=== PATIENT | female | born 1980 | race Caucasian/White ===

== ENCOUNTER 2020-10-06 00:10 | Emergency (ER) | payer OTHER, SELFPAY ==
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
[2020-10-06 01:56] VITALS: BP 116/71; PULSE 101; RESP 18; TEMP 36.8; O2SAT 97; BMI 19.8
[2020-10-06 04:00] VITALS: BP 128/72; PULSE 92; RESP 16; TEMP 36.9; O2SAT 99
--- NOTE | 2020-10-06 04:49 | ECG_ITS ---
Test Reason : CP Blood Pressure : / mmHG Vent. Rate : 079 BPM Atrial Rate : 079 BPM P-R Int : 124 ms QRS Dur : 082 ms QT Int : 378 ms P-R-T Axes : 062 040 035 degrees QTc Int : 433 ms Normal sinus rhythm with sinus arrhythmia Normal ECG No previous ECGs available Referred By: Vickie Hope Electronically Signed By:SYLVAIN SIMPSON MD
[2020-10-06 05:14] LABS: Basophils Percent Auto 0.3 % (0-2); Eosinophils Absolute Auto 0.2 X10*3/uL (0.0-0.4); Eosinophils Percent Auto 1.7 % (0-4); Hematocrit 38.5 % (37-47); Imm Gran Abs Auto 0.03 X10*3/uL (0.00-0.03); Imm Gran Pct Auto 0.3 % (0.0-0.4); Lymphocytes Absolute Auto 1.7 X10*3/uL (1.2-4.9); Lymphocytes Percent Auto 15.2 % (20-40); MANUAL DIFF FLAG NO; Mean Corpuscular HGB Conc 33.8 g/dl (31.0-35.0); Mean Corpuscular Hemoglobin 29.7 pg (27.0-33.0); Mean Corpuscular Volume 88.1 fL (80-98); Mean Platelet Volume 9.9 fL (9.4-12.3); Monocytes Absolute Auto 0.8 X10*3/uL (0.1-1.2); Monocytes Percent Auto 7.3 % (2-11); Neutrophils Absolute Auto 8.6 X10*3/uL (2.0-8.3); Neutrophils Percent Auto 75.2 % (45-73); Platelet Count 279 X10*3/uL (160-400); Red Blood Count 4.37 X10*6/uL (4.20-5.50); Red Cell Distribution Width 12.8 % (11.0-16.0); White Blood Count 11.4 X10*3/uL (4.8-10.8)
[2020-10-06 05:16] LABS: Appearance Urine HAZY; Color Urine AMBER; Glucose Urine UA 250 MG/DL (NEG); Leukocyte Esterase Urine NEG (NEG); Nitrite Urine NEG (NEG); PH 5.5 (5.0-8.0); Specific Gravity - Urine >= 1.030 (1.005-1.025); Urine Blood NEG (NEG); Urine Ketones 5 MG/DL (NEG); Urine Protein 1+ MG/DL (NEG-TRACE)
[2020-10-06 05:22] LABS: UACC CULT YES
[2020-10-06 05:23] LABS: Bacteria Urine 2+ /LPF; Calcium Oxalate Crystals Urine 3+ /LPF; Mucus Urine 2+ /LPF; RBC Urine 0 /HPF (0); Squamous Epithelial Cell Urine 2+ /LPF
--- NOTE | 2020-10-06 05:27 | PC.NURSE ---
EKG obtained by this RN.
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
[2020-10-06 05:37] LABS: Alanine Aminotransferase 17 U/L (0-31); Alkaline Phosphatase 101 U/L (39-117); Anion Gap 16 (12-20); Aspartate Amino Transferase 14 U/L (5-31); Bilirubin Total 0.4 mg/dL (0.0-1.0); Blood Urea Nitrogen 14 mg/dL (9-16); Calcium 8.9 mg/dL (8.4-10.2); Carbon Dioxide 27 mmol/L (22-29); Chloride 97 mmol/L (96-108); Creatinine Clr Calc Pharmacy 74.7; Estimated Glomerular Filt Rate > 60; Glucose Random 343 mg/dL (60-115); Potassium 3.8 mmol/L (3.3-5.1); Sodium 136 mmol/L (135-145); Total Protein 7.1 g/dL (6.5-8.0)
[2020-10-06] MEDS: cephALEXin 500 MG CAPSULE PO (06:30)
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
== END 2020-10-06 06:59 | disposition home or self-care (01) ==
PROVIDERS: Emergency Provider Student in an Organized Health Care Education/Training Program; PCP Nurse Practitioner Adult Health
DX: N39.0 Urinary tract infection, site not specified (principal); F17.200 Nicotine dependence, unspecified, uncomplicated; Z71.6 Tobacco abuse counseling; Z79.899 Other long term (current) drug therapy
CPT/HCPCS: 36415; 71045; 80053; 81001; 85025; 87086; 93005; 99284

== ENCOUNTER 2021-01-10 16:06 | Inpatient (IN) | payer OTHER, SELFPAY ==
--- NOTE | ~2021-01-10 | US_ITS ---
EXAMINATION: US VENOUS ULTRASOUND WITH DOPPLER LOWER EXTREMITY, LEFT CLINICAL INFORMATION: Swelling. COMPARISON: None TECHNIQUE: Ultrasound of the deep veins is performed from the hip to the calf with compression sonography and color and pulse Doppler assessment. Spectral analysis with color-flow imaging is performed. FINDINGS: There is normal venous compression and respiratory variation and augmented flow. The visualized common femoral vein, superficial femoral vein, profunda femoral vein, popliteal vein, and the trifurcation region shows no evidence of deep venous thrombosis. There is no significant popliteal fossa cyst. If the patient's symptoms persist, followup ultrasound in 5 days 7 days might be of value to exclude proximal propagation from a non-visualized calf vein. US/US venous duplex LE LT IMPRESSION: No DVT demonstrated in the left lower extremity.
--- NOTE | ~2021-01-10 | XR_ITS ---
EXAMINATION: ANKLE, LEFT COMMON LEFT CLINICAL INFORMATION: Foot swelling. COMPARISON: None TECHNIQUE: 2 views of the left ankle. 3 views of the left foot. FINDINGS: No fracture or dislocation. The ankle mortise is intact. No joint effusion. Soft tissues are unremarkable. XR/XR foot LT 2V IMPRESSION: No fracture or dislocation.
--- NOTE | ~2021-01-10 | XR_ITS ---
EXAMINATION: ANKLE, LEFT COMMON LEFT CLINICAL INFORMATION: Foot swelling. COMPARISON: None TECHNIQUE: 2 views of the left ankle. 3 views of the left foot. FINDINGS: No fracture or dislocation. The ankle mortise is intact. No joint effusion. Soft tissues are unremarkable. XR/XR ankle LT 2V IMPRESSION: No fracture or dislocation.
--- NOTE | ~2021-01-10 | MR_ITS ---
EXAMINATION: MRI FOOT, LEFT WITHOUT CONTRAST CLINICAL INFORMATION: Rule out osteomyelitis COMPARISON: CT from 01/11/2021 TECHNIQUE: Multisequence multidimensional MR acquisition of the left foot performed without IV contrast. Study is limited with premature termination due to patient condition. FINDINGS: There is no bone marrow signal abnormality identified. No abnormal increased T2 signal. No abnormal decreased T1 signal within the osseous structures. No joint effusion. There is mild edema in the medial soft tissues, adjacent to the first metatarsophalangeal joint superficially. No definite fluid collection identified. No significant soft tissue defect. The visualized flexor and extensor tendons of the foot are grossly unremarkable. The deep musculature of the foot appears unremarkable. MR/MR foot LT wo con IMPRESSION: No evidence of osteomyelitis. Superficial edema at the medial aspect of the foot.
--- NOTE | ~2021-01-10 | CT_ITS ---
EXAMINATION: Contrast CT SCAN OF THE LEFT FOOT CLINICAL INFORMATION: Diabetic foot infection, evaluate for deeper infection. COMPARISON: X-rays of the left foot 01/10/2021. TECHNIQUE: CT scan of the left foot was performed with contrast with reconstruction imaging performed at the acquisition workstation. Contrast dose 85 mL of Omnipaque 350. DLP: 139 mGy-cm. FINDINGS: Subcutaneous soft tissues: There is generalized fluid density noted within the subcutaneous soft tissues, most prominent at the dorsal aspect of the foot, compatible edema, cellulitis or a combination of these. There is less prominent scattered areas of similar density noted throughout the circumferential subcutaneous soft tissues. Additionally, there is a more focal area of heterogeneous enhancement with a somewhat peripheral area of enhancement along the plantar aspect of the foot just distal to level of the 1st metatarsophalangeal joint. This measures approximately 1.6 x 2 x 2 cm. This could reflect an evolving abscess versus localized cellulitis. No additional focal abnormalities noted. Bone and joints are unremarkable. CT/CT foot LT w con IMPRESSION: Bone and joints are intact. Probable generalized edema , cellulitis or a combination of these most prominent along the dorsal aspect of the foot. Question concomitant focal evolving abscess or prominent localized cellulitis along the plantar aspect of the foot, just distal to the level of the 1st metatarsophalangeal joint.
[2021-01-10 16:15] VITALS: BP 124/78; PULSE 91; O2SAT 97
[2021-01-10 18:49] VITALS: BP 122/80; PULSE 88; RESP 18; TEMP 36.9; O2SAT 100; BMI 22.6
[2021-01-10] MEDS: Acetaminophen 325 MG TABLET 650 MG PO (18:55)
[2021-01-10 19:41] LABS: Glucose, Whole Blood 180 mg/dL (60-115)
[2021-01-10 19:56] LABS: Mean Corpuscular HGB Conc 32.5 g/dl (31.0-35.0); Mean Corpuscular Hemoglobin 27.5 pg (27.0-33.0); Mean Corpuscular Volume 84.7 fL (80-98); Mean Platelet Volume 9.7 fL (9.4-12.3); Platelet Count 283 X10*3/uL (160-400); Red Blood Count 4.72 X10*6/uL (4.20-5.50); Red Cell Distribution Width 14.3 % (11.0-16.0); White Blood Count 10.2 X10*3/uL (4.8-10.8)
--- NOTE | 2021-01-10 20:12 | ED_ITS ---
HPI - Extremity Injury (Lower) General Chief Complaint: Extremity Injury, Lower Stated Complaint: anxiety Time Seen by Provider: 01/10/21 19:49 Source: patient Mode of arrival: ambulatory Limitations: no limitations History of Present Illness HPI Narrative: Patient presents to the ED for left foot swelling and redness for 4 days. Patient has a wound on plantar aspect of foot has worsened and the foot is red and swollen. Patient admits to IV drug use. Patient denies any fever or chills. Related Data Home Medications Medication Instructions Recorded Confirmed insulin aspart U-100 100 unit/mL See Rx Instructions .ROUTE .COMPLEX 01/10/21 01/10/21 subcutaneous solution (Novolog U-100 Insulin aspart) insulin pump controller 01/10/21 01/10/21 Allergies Allergy/AdvReac Type Severity Reaction Status Date / Time ibuprofen Allergy Anaphylaxis Verified 01/10/21 18:54 Review of Systems Constitutional: Constitutional: Reports as per HPI and Reports no additional constitutional complaints Eyes: Eyes: Reports as per HPI and Reports no additional eye complaints ENT: Reports system reviewed and no additional complaints, except as documented and Reports as per HPI Cardiovascular: Cardiovascular: Reports as per HPI and Reports no additional cardiovascular complaints Respiratory: Respiratory: Reports as per HPI and Reports no additional respiratory complaints Gastrointestinal: Gastrointestinal: Reports as per HPI and Reports no additional gastrointestinal complaints Genitourinary: Genitourinary: Reports no additional female genitourinary complaints and Reports as per HPI Musculoskeletal: Musculoskeletal: Reports no additional musculoskeletal complaints and Reports as per HPI Comments: Left foot redness swelling Neurologic: Reports system reviewed and no additional complaints, except as documented and Reports as per HPI Psychiatric: Psychiatric: Reports no additional psychiatric complaints and Reports as per HPI Endocrine: Endocrine: Reports no additional endocrine complaints and Reports as per HPI [facility] Past Medical History Medical History (Updated 01/10/21 @ 23:05 by THADDEUS Light) Type 1 diabetes Surgical History (Updated 01/10/21 @ 18:52 by Joesph Garland) H/O: hysterectomy Social History Social History Alcohol intake: never Substance Use Type: Crack/Cocaine, Heroin and IV Drugs Advance Directives: No Advance Directives Information Provided: Yes Patient : No service: No Current occupational status: disabled Physical Exam Vital Signs: Vital Signs: Last Vital Signs Temp 98.5 F 01/10/21 18:49 Pulse 90 01/10/21 22:01 Resp 12 01/10/21 22:01 BP 107/61 01/10/21 22:01 Pulse Ox 97 01/10/21 22:01 Body Mass Index 22.6 Const: General: cooperative, healthy appearing, comfortable, no acute distress, well developed, alert and awake HENMT: Head: Yes normal to inspection, Yes No palpable skull fracture present, Yes normocephalic, Yes atraumatic and No abrasion Eyes: General: appearance normal, both eyes and all related structures Neck: Neck: Yes normal visual inspection, Yes full ROM, Yes no lymphadenopathy, Yes no meningeal signs, Yes trachea midline, Yes supple and No tender Chest: Chest palpation & inspection: normal inspection of the chest and normal palpation of entire chest wall Resp: Effort & Inspection: normal respiratory effort and able to speak in complete sentences Auscultation: clear to auscultation bilaterally Cardio: Jugular venous distension: no JVD Heart sounds: S1 normal heart sound present and S2 normal heart sound present GI: Inspection: Yes normal to inspection and No abdominal wall ecchymosis Palpation (GI): Soft to palpation, not firm, nontender, no guarding and not rigid : General: No CVA tenderness and Yes no CVA tenderness Back/Spine/Pelvis: Back: no CVA tenderness, No CVA tenderness and No back tenderness Skin: Other: Left foot cellulitis Neuro: General: no meningeal signs Extrem: Other: Ankle/foot/toe images: 1. Redness, swelling, warmth. 2. Dry wound/blister Psych: Other: Course Course Course Narrative: Left lower extremity is seen infectious. Will do labs, ESR, CRP, foot x-ray and IV antibiotic vancomycin. Patient has anaphylaxis to penicillin and NSAIDs. Reevaluation(s) Reevaluation #1: Patient started vancomycin. ESR CRP elevated. Patient to be admitted for diabetic foot cellulitis. Time: 22:56 MDM - Extremity Injury (Lower) MDM Narrative Medical decision making narrative: Diabetic foot. Cellulitis Lab Data Result diagrams: 01/10/21 19:50 01/10/21 19:50 Labs: Lab Results 01/10/21 01/10/21 01/10/21 Range/Units 19:38 19:50 19:50 WBC 10.2 (4.8-10.8) X10*3/uL RBC 4.72 (4.20-5.50) X10*6/uL Hgb 13.0 (12.0-16.0) g/dl Hct 40.0 (37-47) % MCV 84.7 (80-98) fL MCH 27.5 (27.0-33.0) pg MCHC 32.5 (31.0-35.0) g/dl RDW 14.3 (11.0-16.0) % Plt Count 283 (160-400) X10*3/uL MPV 9.7 (9.4-12.3) fL Absolute Nucleated RBC 0.000 (0.0-0.012) X10*3/uL Nucleated RBC % (auto) 0.0 (0.0-0.2) /100WBC ESR (0-20) MM/HR Sodium 135 (135-145) mmol/L Potassium 4.1 (3.3-5.1) mmol/L Chloride 96 (96-108) mmol/L Carbon Dioxide 29 (22-29) mmol/L Anion Gap 14 (12-20) BUN 8 L (9-16) mg/dL Creatinine 0.70 (0.5-1.4) mg/dL Estim Creat Clear Calc 81.3 Estimated GFR > 60 POC Glucose 180 H (60-115) mg/dL Random Glucose 225 H (60-115) mg/dL Lactic Acid (0.5-2.0) mmol/L Calcium 8.8 (8.4-10.2) mg/dL C-Reactive Protein 5.45 H (< or = 0.50) mg/dL COVID-19 (KIRSTEN) (Negative) COVID-19 Clin Com 01/10/21 01/10/21 01/10/21 Range/Units 19:50 19:50 20:02 WBC (4.8-10.8) X10*3/uL RBC (4.20-5.50) X10*6/uL Hgb (12.0-16.0) g/dl Hct (37-47) % MCV (80-98) fL MCH (27.0-33.0) pg MCHC (31.0-35.0) g/dl RDW (11.0-16.0) % Plt Count (160-400) X10*3/uL MPV (9.4-12.3) fL Absolute Nucleated RBC (0.0-0.012) X10*3/uL Nucleated RBC % (auto) (0.0-0.2) /100WBC ESR 28 H (0-20) MM/HR Sodium (135-145) mmol/L Potassium (3.3-5.1) mmol/L Chloride (96-108) mmol/L Carbon Dioxide (22-29) mmol/L Anion Gap (12-20) BUN (9-16) mg/dL Creatinine (0.5-1.4) mg/dL Estim Creat Clear Calc Estimated GFR POC Glucose (60-115) mg/dL Random Glucose (60-115) mg/dL Lactic Acid 1.1 (0.5-2.0) mmol/L Calcium (8.4-10.2) mg/dL C-Reactive Protein (< or = 0.50) mg/dL COVID-19 (KIRSTEN) Negative (Negative) COVID-19 Clin Com See Note 01/10/21 Range/Units 22:00 WBC (4.8-10.8) X10*3/uL RBC (4.20-5.50) X10*6/uL Hgb (12.0-16.0) g/dl Hct (37-47) % MCV (80-98) fL MCH (27.0-33.0) pg MCHC (31.0-35.0) g/dl RDW (11.0-16.0) % Plt Count (160-400) X10*3/uL MPV (9.4-12.3) fL Absolute Nucleated RBC (0.0-0.012) X10*3/uL Nucleated RBC % (auto) (0.0-0.2) /100WBC ESR (0-20) MM/HR Sodium (135-145) mmol/L Potassium (3.3-5.1) mmol/L Chloride (96-108) mmol/L Carbon Dioxide (22-29) mmol/L Anion Gap (12-20) BUN (9-16) mg/dL Creatinine (0.5-1.4) mg/dL Estim Creat Clear Calc Estimated GFR POC Glucose 219 H (60-115) mg/dL Random Glucose (60-115) mg/dL Lactic Acid (0.5-2.0) mmol/L Calcium (8.4-10.2) mg/dL C-Reactive Protein (< or = 0.50) mg/dL COVID-19 (KIRSTEN) (Negative) COVID-19 Clin Com Discharge Plan Discharge Clinical Impression: Diabetic foot, Cellulitis Patient Disposition: Admitted As Inpatient
[2021-01-10 20:17] LABS: Lactic Acid 1.1 mmol/L (0.5-2.0)
[2021-01-10 20:21] LABS: Anion Gap 14 (12-20); Blood Urea Nitrogen 8 mg/dL (9-16); C Reactive Protein 5.45 mg/dL (< or = 0.50); Calcium 8.8 mg/dL (8.4-10.2); Carbon Dioxide 29 mmol/L (22-29); Chloride 96 mmol/L (96-108); Creatinine Clr Calc Pharmacy 81.3; Estimated Glomerular Filt Rate > 60; Glucose Random 225 mg/dL (60-115); Potassium 4.1 mmol/L (3.3-5.1); Sodium 135 mmol/L (135-145)
[2021-01-10 20:24] VITALS: BP 119/84; PULSE 80; RESP 11; O2SAT 98
[2021-01-10 20:29] LABS: COVID-19 Test Negative (Negative)
[2021-01-10] MEDS: Morphine Sulfate 4 MG/ML CARTRIDGE IVPUSH (20:38)
[2021-01-10] MEDS: vancomycin HCL 750 MG in 0.9 % Sodium Chloride 250 ML 265 MG IV (20:38)
[2021-01-10 20:51] LABS: Erythrocyte Sedimentation Rate 28 MM/HR (0-20)
[2021-01-10 22:01] VITALS: BP 107/61; PULSE 90; RESP 12; O2SAT 97
[2021-01-10 22:06] LABS: Glucose, Whole Blood 219 mg/dL (60-115)
--- NOTE | 2021-01-10 22:12 | MHC.CM.PN ---
CM attmepted to meet with pt. Pt is admitted with bed assignment pending. Pt is not interested in speaking with CM at this time. Reports being homeless and demanding that all contacts be removed from her record. Does not want sister, Megha Figueredo as her contact. Refuses to allow CM to contact her sister. Registration aware and contacts removed. D/C plan is unknown at this time, as pt will not engage in conversation with CM at this time. Pt will need CARE/recovery support consult. CM to follow for d/c needs.
--- NOTE | 2021-01-10 23:10 | PM.IMHP ---
History of Present Illness Date of Service: 01/10/21 Chief Complaint: Left foot pain redness and swelling 40-year-old female with a past medical history of insulin-dependent diabetes-on insulin pump, history of IV drug abuse, tobacco dependence, homeless presented to the hospital with a chief complaint of left foot pain redness and swelling. Patient reported over the past couple days she has been having increased pain redness and swelling of her left foot, limiting her mobility; noted to have small skin abrasions on the bottom of the foot with some brownish discharge; hence decided to come to the hospital for further management. Patient reports that she smokes cigarettes and also uses IV drugs; but has not used the drugs in the past 3 days. Patient denies any fever chills cough or shortness of breath Denies any chest pain palpitations lightheadedness or dizziness Review of all other systems is negative except mentioned above ER course: Per ER team patient noted to have pain redness and swelling over dorsum of the left foot; concerning for diabetic foot infection. Given IV vancomycin. X-ray showed no acute findings; duplex negative for any blood products. Admitted to the hospital for further management. [facility] Medical History Abscess of foot IV drug abuse Type 1 diabetes Surgical History H/O: hysterectomy Social History Household Members: Unknown / Unable to assess Housing: Unknown / Unable to assess Unable to assess alcohol history related to: Unable to respond Alcohol intake: never Patient Tobacco Use Status: Current someday Tobacco user Tobacco use type: Cigarette Second Hand Smoke Exposure: No Use of substances other than those prescribed or required for medical reasons: Yes Substance Use Type: Crack/Cocaine Substance Use Type Other:: unable to respond/tox screen pending Substance Use Frequency: Occasionally Last Used Substance: Unknown Currently Displaying Signs/Symptoms of Drug Intoxication Withdrawal: No Spiritual Healthcare Practices: unknown Sabianist Healthcare Practices: unknown Cultural Healthcare Practices: unknown Advance Directives: No Advance Directives Information Provided: No Advance Directives on File: No Do you have thoughts of harming others: None Do you have a plan to hurt others: No Plan Recently lost weight without trying: Unsure How much weight loss: Unsure Patient : No service: No Current occupational status: disabled Meds Allergies Allergy/AdvReac Type Severity Reaction Status Date / Time ibuprofen Allergy Anaphylaxis Verified 01/10/21 18:54 Penicillins Allergy Anaphylaxis Verified 01/27/21 15:56 Active Medications: Current Medications Generic Name Dose Route Start Last Admin Trade Name Freq PRN Reason Stop Dose Admin Acetaminophen 650 mg 01/10/21 23:05 Acetaminophen 325 Mg Tablet PO Q6H PRN Pain, Mild (Pain Scale 1-3) Enoxaparin Sodium 40 mg 01/10/21 23:15 Enoxaparin Sodium 40 Mg/0.4 Ml Syringe SUBCUT Q24H [facility] Vancomycin HCl 750 mg/ Sodium 265 mls @ 265 mls/hr 01/11/21 08:00 Chloride IV Q12H [facility] Vancomycin HCl 1,000 mg/ 270 mls @ 270 mls/hr 01/10/21 23:15 Sodium Chloride IV Q12H [facility] Melatonin 6 mg 01/10/21 23:05 Melatonin 3 Mg Tablet PO BEDTIME PRN Insomnia Non-Formulary Medication 0 pump 01/10/21 23:15 Insulin Aspart U-100 [Novolog U-100 Insulin Aspart] .ROUTE .COMPLEX [facility] Oxycodone HCl 5 mg 01/10/21 23:03 Oxycodone Hcl Immed Release 5 Mg Tablet PO Q6H PRN [facility] Consult 1 each 01/10/21 20:03 Consult Rx Perform Med Rec MISCELLANE ONCE PRN Consult order Pharmacy Consult 1 each 01/10/21 20:10 Consult Rx Vancomycin Dosing MISCELLANE DAILY PRN Consult order Pharmacy Consult 1 each 01/10/21 23:03 Consult Rx Vancomycin Dosing MISCELLANE DAILY PRN Consult order Senna 17.2 mg 01/10/21 23:05 Sennosides 8.6 Mg Tablet PO BEDTIME PRN Constipation Sodium Chloride 3 ml 01/11/21 00:00 0.9 % Sodium Chloride Flush 3 Ml Syringe IVFLUSH QSHI Home Medications Medication Instructions Recorded Confirmed Last Taken Type insulin aspart U-100 100 unit/mL See Rx Instructions .ROUTE .COMPLEX 01/10/21 01/27/21 Unknown History subcutaneous solution (Novolog U-100 Insulin aspart) insulin pump controller 01/10/21 01/27/21 Unknown History ergocalciferol (vitamin D2) 1,250 1,250 mcg PO QWEEK 01/27/21 01/27/21 Unknown History mcg (50,000 unit) capsule (Vitamin D2) methylphenidate HCl 20 mg biphasic 20 mg PO DAILY 01/27/21 01/27/21 Unknown History 50-50 capsule,extended release (Ritalin [place]) Physical Exam Vital Signs and Narrative: Vital Signs: Last Vital Signs Temp 98.5 F 01/10/21 18:49 Pulse 90 01/10/21 22:01 Resp 12 01/10/21 22:01 BP 107/61 01/10/21 22:01 Pulse Ox 97 01/10/21 22:01 Body Mass Index 22.6 Gen: Appears be in no acute distress HEENT: NCAT, Moist mucosa. Pulmonary: Vesicular breath sounds, fair air entry CVS: Normal S1-S2 Abdomen: BS+, Soft, Nontender Extremities: Warm well perfused; dorsum of the left foot is warm tender in hyperemic; passive range of motion of ankle is maintained. On the plantar surface of the foot below grade 2 over noted small skin abrasions; no discharge noted. Neuro: Alert and awake. Results Labs CBC and Chem 7: 01/11/21 09:16 01/13/21 06:22 Labs: Laboratory Results - last 24 hr 01/10/21 01/10/21 01/10/21 19:38 19:50 19:50 MCV 84.7 MCH 27.5 MCHC 32.5 RDW 14.3 Plt Count 283 MPV 9.7 Absolute Nucleated RBC 0.000 Nucleated RBC % (auto) 0.0 ESR Anion Gap 14 Estim Creat Clear Calc 81.3 Estimated GFR > 60 POC Glucose 180 H Random Glucose 225 H Lactic Acid Calcium 8.8 C-Reactive Protein 5.45 H COVID-19 (KIRSTEN) COVID-19 Clin Com 01/10/21 01/10/21 01/10/21 19:50 19:50 20:02 MCV MCH MCHC RDW Plt Count MPV Absolute Nucleated RBC Nucleated RBC % (auto) ESR 28 H Anion Gap Estim Creat Clear Calc Estimated GFR POC Glucose Random Glucose Lactic Acid 1.1 Calcium C-Reactive Protein COVID-19 (KIRSTEN) Negative COVID-19 Clin Com See Note 01/10/21 22:00 MCV MCH MCHC RDW Plt Count MPV Absolute Nucleated RBC Nucleated RBC % (auto) ESR Anion Gap Estim Creat Clear Calc Estimated GFR POC Glucose 219 H Random Glucose Lactic Acid Calcium C-Reactive Protein COVID-19 (KIRSTEN) COVID-19 Clin Com Imaging Radiologist's Impressions: Impressions Ankle X-Ray 01/10/21 18:58 IMPRESSION: No fracture or dislocation. Foot X-Ray 01/10/21 18:58 IMPRESSION: No fracture or dislocation. Venous Duplex 01/10/21 20:13 IMPRESSION: No DVT demonstrated in the left lower extremity. Assessment and Plan (1) DKA (diabetic ketoacidosis): Status: Acute 40-year-old female with a past medical history of diabetes, tobacco dependence, IV drug abuse, homelessness presented to the hospital with a chief complaint of left foot pain redness and swelling; noted to have diabetic foot infection/cellulitis. Admitted to the hospital for further management. Left foot diabetic foot infection/cellulitis: Continue IV vancomycin. Venous duplex negative for any blood clots. Will obtain nonvascular ultrasound to rule out any abscess. Id consult for further recommendations. Diabetes: Patient is on insulin for. Patient mentioned that she wanted to continue her insulin pump. Fingerstick glucose q.a.c. HS. Diet: Patient refused diabetic diet. Patient wanted to be only on regular diet. History of IV drug abuse: Patient denies any drug use in the past 3 days. Monitor for any signs of withdrawals. Tobacco dependence: Counseled on smoking cessation. 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
[2021-01-11] VITALS: BP 110/65; PULSE 80; RESP 16; TEMP 36.3; O2SAT 98
[2021-01-11] MEDS: oxyCODONE HCl Immed Release 5 MG TABLET PO ×3 (00:33→11:40)
[2021-01-11] MEDS: 0.9 % Sodium Chloride Flush 3 ML SYRINGE IVFLUSH ×4 (01:07→23:38)
[2021-01-11] MEDS: Morphine Sulfate 2 MG/ML CARTRIDGE 1 MG IVPUSH (02:38)
[2021-01-11] MEDS: Acetaminophen 325 MG TABLET 650 MG PO (02:38)
[2021-01-11 04:00] VITALS: BP 106/58; PULSE 84; RESP 16; TEMP 36.2; O2SAT 98
[2021-01-11 07:32] VITALS: BP 105/69; PULSE 64; RESP 16; TEMP 36.8; O2SAT 96
[2021-01-11 07:43] LABS: Glucose, Whole Blood 404 mg/dL (60-115)
[2021-01-11] MEDS: vancomycin HCL 750 MG in 0.9 % Sodium Chloride 250 ML 265 MG IV ×2 (07:51→19:32)
[2021-01-11 09:20] LABS: MANUAL DIFF FLAG NO
[2021-01-11 09:25] LABS: Basophils Percent Auto 0.4 % (0-2); Eosinophils Absolute Auto 0.2 X10*3/uL (0.0-0.4); Imm Gran Abs Auto 0.06 X10*3/uL (0.00-0.03); Imm Gran Pct Auto 0.7 % (0.0-0.4); Lymphocytes Absolute Auto 1.6 X10*3/uL (1.2-4.9); Mean Corpuscular HGB Conc 32.5 g/dl (31.0-35.0); Mean Corpuscular Volume 86.2 fL (80-98); Mean Platelet Volume 9.4 fL (9.4-12.3); Monocytes Absolute Auto 0.6 X10*3/uL (0.1-1.2); Monocytes Percent Auto 7.7 % (2-11); Neutrophils Absolute Auto 5.6 X10*3/uL (2.0-8.3); Neutrophils Percent Auto 69.2 % (45-73); Platelet Count 273 X10*3/uL (160-400); Red Blood Count 4.64 X10*6/uL (4.20-5.50); Red Cell Distribution Width 14.4 % (11.0-16.0); White Blood Count 8.1 X10*3/uL (4.8-10.8)
[2021-01-11 09:47] LABS: Anion Gap 12 (12-20); Blood Urea Nitrogen 8 mg/dL (9-16); Calcium 8.2 mg/dL (8.4-10.2); Carbon Dioxide 27 mmol/L (22-29); Chloride 103 mmol/L (96-108); Estimated Glomerular Filt Rate > 60; Glucose Random 332 mg/dL (60-115); Sodium 138 mmol/L (135-145)
[2021-01-11] MEDS: Morphine Sulfate 4 MG/ML CARTRIDGE IVPUSH ×3 (10:03→20:29)
--- NOTE | 2021-01-11 10:29 | P.PNIM_ITS ---
Subjective Subjective Date of Service: 01/11/21 Interval History: seen and examined this AM not really talking much does not want to me to touch her foot also per RN report -- refused labs and refused to allow Physical Exam Vital Signs: Vital Signs: Last Vital Signs Temp 98.3 F 01/11/21 07:32 Pulse 64 01/11/21 07:32 Resp 16 01/11/21 07:32 BP 105/69 01/11/21 07:32 Pulse Ox 96 01/11/21 07:32 Body Mass Index 22.6 Objective Data Current Medications Generic Name Dose Route Start Last Admin Trade Name Freq PRN Reason Stop Dose Admin Acetaminophen 650 mg 01/10/21 23:05 01/11/21 02:38 Acetaminophen 325 Mg Tablet PO 650 mg Q6H PRN Administration Pain, Mild (Pain Scale 1-3) Enoxaparin Sodium 40 mg 01/10/21 23:15 01/10/21 23:35 Enoxaparin Sodium 40 Mg/0.4 Ml Syringe SUBCUT Not Given Q24H [facility] Vancomycin HCl 750 mg/ Sodium 265 mls @ 265 mls/hr 01/11/21 08:00 01/11/21 09:22 Chloride IV Infused Q12H [facility] Infusion Piperacillin Sod/Tazobactam 50 mls @ 100 mls/hr 01/11/21 11:00 Sod 3.375 gm/ Sodium Chloride IV Q6H [facility] Melatonin 6 mg 01/10/21 23:05 Melatonin 3 Mg Tablet PO BEDTIME PRN Insomnia Non-Formulary Medication 0 pump 01/11/21 11:30 01/11/21 07:52 Insulin Aspart U-100 [Novolog U-100 Insulin Aspart] IV 1 pump QIDACHS [facility]ÉCTOR Administration Oxycodone HCl 10 mg 01/11/21 09:51 Oxycodone Hcl Immed Release 5 Mg Tablet PO Q6H PRN Pain, Severe (Pain Scale 7-10) Pharmacy Consult 1 each 01/10/21 20:03 Consult Rx Perform Med Rec MISCELLANE ONCE PRN Consult order Pharmacy Consult 1 each 01/10/21 20:10 Consult Rx Vancomycin Dosing MISCELLANE DAILY PRN Consult order Pharmacy Consult 1 each 01/10/21 23:03 Consult Rx Vancomycin Dosing MISCELLANE DAILY PRN Consult order Senna 17.2 mg 01/10/21 23:05 Sennosides 8.6 Mg Tablet PO BEDTIME PRN Constipation Sodium Chloride 3 ml 01/11/21 00:00 01/11/21 07:51 0.9 % Sodium Chloride Flush 3 Ml Syringe IVFLUSH [address] [facility] Administration Labs CBC & Chem 7: 01/11/21 09:16 01/11/21 09:16 Labs: Laboratory Results - last 24 hr 01/10/21 01/10/21 01/10/21 19:38 19:50 19:50 MCV 84.7 MCH 27.5 MCHC 32.5 RDW 14.3 Plt Count 283 MPV 9.7 Immature Gran % (Auto) Neut % (Auto) Lymph % (Auto) Winkler % (Auto) Eos % (Auto) Baso % (Auto) Lymph # (Auto) Winkler # (Auto) Eos # (Auto) Baso # (Auto) Abs Immat Gran (auto) Absolute Neuts (auto) Absolute Nucleated RBC 0.000 Nucleated RBC % (auto) 0.0 ESR Anion Gap 14 Estim Creat Clear Calc 81.3 Estimated GFR > 60 POC Glucose 180 H Random Glucose 225 H Lactic Acid Calcium 8.8 C-Reactive Protein 5.45 H COVID-19 (KIRSTEN) COVID-19 Clin Com 01/10/21 01/10/21 01/10/21 19:50 19:50 20:02 MCV MCH MCHC RDW Plt Count MPV Immature Gran % (Auto) Neut % (Auto) Lymph % (Auto) Winkler % (Auto) Eos % (Auto) Baso % (Auto) Lymph # (Auto) Winkler # (Auto) Eos # (Auto) Baso # (Auto) Abs Immat Gran (auto) Absolute Neuts (auto) Absolute Nucleated RBC Nucleated RBC % (auto) ESR 28 H Anion Gap Estim Creat Clear Calc Estimated GFR POC Glucose Random Glucose Lactic Acid 1.1 Calcium C-Reactive Protein COVID-19 (KIRSTEN) Negative COVID-19 Clin Com See Note 01/10/21 01/11/21 01/11/21 22:00 07:30 09:16 MCV 86.2 MCH 28.0 MCHC 32.5 RDW 14.4 Plt Count 273 MPV 9.4 Immature Gran % (Auto) 0.7 H Neut % (Auto) 69.2 Lymph % (Auto) 20.0 Winkler % (Auto) 7.7 Eos % (Auto) 2.0 Baso % (Auto) 0.4 Lymph # (Auto) 1.6 Winkler # (Auto) 0.6 Eos # (Auto) 0.2 Baso # (Auto) 0.0 Abs Immat Gran (auto) 0.06 H Absolute Neuts (auto) 5.6 Absolute Nucleated RBC 0.000 Nucleated RBC % (auto) 0.0 ESR Anion Gap Estim Creat Clear Calc Estimated GFR POC Glucose 219 H 404 H* Random Glucose Lactic Acid Calcium C-Reactive Protein COVID-19 (KIRSTEN) COVID-19 Clin Com 01/11/21 09:16 MCV MCH MCHC RDW Plt Count MPV Immature Gran % (Auto) Neut % (Auto) Lymph % (Auto) Winkler % (Auto) Eos % (Auto) Baso % (Auto) Lymph # (Auto) Winkler # (Auto) Eos # (Auto) Baso # (Auto) Abs Immat Gran (auto) Absolute Neuts (auto) Absolute Nucleated RBC Nucleated RBC % (auto) ESR Anion Gap 12 Estim Creat Clear Calc 74.0 Estimated GFR > 60 POC Glucose Random Glucose 332 H D Lactic Acid Calcium 8.2 L D C-Reactive Protein COVID-19 (KIRSTEN) COVID-19 Clin Com Assessment and Plan (1) Diabetic foot infection: Status: Acute Assessment and Plan: This is a 40 yo F with a PMH of IDDM, IVDU - last use 3 days prior to admission who presented to the hospital with complaints of L foot pain, swelling, redness of unknown duration. Her clinial picture is concerning for diabetic foot infection. 1. Diabetic Foot infection concerning for osteo / abscess patient had an insulin pump which she refuses to take off for MRI despite explaining to her that MRI is most sensitive for osteo. Will proceed with CT foot with IV contrast continue vancomcyin and add zosyn f/u cultures follow up vancomcyin trough and renal function closely while on IV vancomyin. Patient refused labs this AM, but after explanation, she stats she will alow for lab draws. 2. Uncontrolled DM on insulin pump, which patient refuses to remove continue with POC QIDAC 3. Active IVDU reported last use 3 days prior to admission no withdrawal at this time attempted to discuss with her about suboxone / methadone -- but she does not seem interested in it at this time. Full Code DVT pptx, Lovenox Quality Stroke Does the patient have a stroke diagnosis?: No VTE Prior VTE?: No VTE Risk Level:: Medical - moderate - high VTE Device Contraindication: Treatment Not Indicated VTE Drug Contraindication: N/A - Med Ordered
[2021-01-11] MEDS: Piperacillin Sodium/Tazobactam 3.375 GM in 0.9 % Sodium Chloride 50 ML IV ×3 (11:10→23:38)
[2021-01-11 11:41] LABS: Glucose, Whole Blood 339 mg/dL (60-115)
[2021-01-11 12:00] VITALS: BP 113/69; PULSE 67; RESP 18; TEMP 36.4; O2SAT 99
[2021-01-11] MEDS: iohexoL 350 MG/ML 100 ML INFUS..BTL 85 ML IV (13:00)
--- NOTE | 2021-01-11 14:50 | PM.CNGS ---
History of Present Illness Consult details Consult date: 01/11/21 Narrative: [age] year female, known diabetic, admitted last night because of cellulitis of the left foot. She states that she has had a blister on the left foot for about 3 days. She says that this happened because she has been sleeping outside , implying that she has been homeless. The patient does not want to answer questions at this time. She says that some of the questions are unnecessary. She apparently had significant redness on her foot so she was admitted last night. She otherwise says that she denies any trauma to the area. Not much of the rest of her history is available the patient. Based on the H&P however, she has been using IV drugs as well, with the last stated use being 3 days prior to admission. Review of Systems Constitutional: Constitutional: Reports chills Cardiovascular: Cardiovascular: Denies chest pain, Denies dyspnea and Denies dyspnea on exertion Respiratory: Respiratory: Denies cough, Denies dyspnea and Denies dyspnea on exertion Gastrointestinal: Gastrointestinal: Denies hematochezia and Denies change in bowel habits Genitourinary: Genitourinary: Denies hematuria Musculoskeletal: Musculoskeletal: Denies back pain and Denies limited range of motion Neurologic: Denies focal weakness and Denies convulsions Psychiatric: Psychiatric: Denies depression and Denies mood swings PMFSH Past Medical History Medical History (Updated 01/11/21 @ 14:53 by Judson Marino MD) Abscess of foot IV drug abuse Type 1 diabetes Surgical History Surgical History (Updated 01/10/21 @ 18:52 by Joesph Garland) H/O: hysterectomy Social History Social History Household Members: None Alcohol intake: never Patient Tobacco Use Status: Current everyday Tobacco user Tobacco use type: Cigarette Smoked in Last 30 Days: Yes Patient Interested in Nicotine Replacement: No Patient Given Instructions on How to Stop Smoking: Yes Date Education Initiated: 01/11/21 Second Hand Smoke Exposure: No Use of substances other than those prescribed or required for medical reasons: Refusing to respond Substance Use Type: Crack/Cocaine, Heroin and IV Drugs Currently Displaying Signs/Symptoms of Drug Intoxication Withdrawal: No Have you been hit, kicked, punched, or otherwise hurt by someone within the past year? If so, by whom?: No Do you feel safe in your current relationship?: Yes Is there a partner from a previous relationship who is making you feel unsafe now?: No Are you made to feel afraid or neglected: No Advance Directives: No Advance Directives Information Provided: Yes Do you have thoughts of harming others: None Do you have a plan to hurt others: No Plan Recently lost weight without trying: No Eating poorly because of decreased appetite: No Nutrition Risks: No Nutritional Risk Patient : No service: No Current occupational status: disabled Meds Allergies Allergy/AdvReac Type Severity Reaction Status Date / Time ibuprofen Allergy Anaphylaxis Verified 01/10/21 18:54 Active Medications: Current Medications Generic Name Dose Route Start Last Admin Trade Name Freq PRN Reason Stop Dose Admin Acetaminophen 650 mg 01/10/21 23:05 01/11/21 02:38 Acetaminophen 325 Mg Tablet PO 650 mg Q6H PRN Administration Pain, Mild (Pain Scale 1-3) Enoxaparin Sodium 40 mg 01/10/21 23:15 01/10/21 23:35 Enoxaparin Sodium 40 Mg/0.4 Ml Syringe SUBCUT Not Given Q24H [facility] Vancomycin HCl 750 mg/ Sodium 265 mls @ 265 mls/hr 01/11/21 08:00 01/11/21 09:22 Chloride IV Infused Q12H [facility] Infusion Piperacillin Sod/Tazobactam 50 mls @ 100 mls/hr 01/11/21 11:00 01/11/21 11:44 Sod 3.375 gm/ Sodium Chloride IV Infused Q6H [facility] Infusion Melatonin 6 mg 01/10/21 23:05 Melatonin 3 Mg Tablet PO BEDTIME PRN Insomnia Morphine Sulfate 4 mg 01/11/21 14:06 01/11/21 14:25 Morphine Sulfate 4 Mg/Ml Cartridge IVPUSH 4 mg Q6H PRN Administration Breakthrough Pain Non-Formulary Medication 0 pump 01/11/21 11:30 01/11/21 11:41 Insulin Aspart U-100 [Novolog U-100 Insulin Aspart] IV 1 pump QIDACHS HÉCTOR Administration Oxycodone HCl 10 mg 01/11/21 09:51 Oxycodone Hcl Immed Release 5 Mg Tablet PO Q6H PRN Pain, Severe (Pain Scale 7-10) Pharmacy Consult 1 each 01/10/21 20:03 Consult Rx Perform Med Rec MISCELLANE ONCE PRN Consult order Pharmacy Consult 1 each 01/10/21 20:10 Consult Rx Vancomycin Dosing MISCELLANE DAILY PRN Consult order Pharmacy Consult 1 each 01/10/21 23:03 Consult Rx Vancomycin Dosing MISCELLANE DAILY PRN Consult order Senna 17.2 mg 01/10/21 23:05 Sennosides 8.6 Mg Tablet PO BEDTIME PRN Constipation Sodium Chloride 3 ml 01/11/21 00:00 01/11/21 07:51 0.9 % Sodium Chloride Flush 3 Ml Syringe IVFLUSH 3 ml QSHIFT [facility]ÉCTOR Administration Home Medications Medication Instructions Recorded Confirmed Last Taken Type insulin aspart U-100 100 unit/mL See Rx Instructions .ROUTE .COMPLEX 01/10/21 01/10/21 Unknown History subcutaneous solution (Novolog U-100 Insulin aspart) insulin pump controller 01/10/21 01/10/21 Unknown History Physical Exam Vital Signs: Vital Signs: Last Vital Signs Temp 97.6 F 01/11/21 12:00 Pulse 67 01/11/21 12:00 Resp 18 01/11/21 12:00 BP 113/69 01/11/21 12:00 Pulse Ox 99 01/11/21 12:00 Body Mass Index 22.6 Const: Other: Not very cooperative at this time with regards questions, she did not want to be ask questions she stated General: no acute distress, alert and anxious Resp: Effort & Inspection: normal respiratory effort Cardio: Rate: regular rate GI: Palpation (GI): Soft to palpation, not firm, nontender and no guarding Extrem: Other: Cellulitis around the area of the left big toe, on both the plantar aspect and the dorsum; there is note of a fluctuant bullous area on the plantar aspect at the base of the big toe, measuring about 3 cm in widest diameter, with surrounding cellulitis Results Labs Result diagrams: 01/11/21 09:16 01/11/21 09:16 Labs: Abnormal lab results 01/10/21 01/10/21 01/10/21 Range/Units 19:38 19:50 19:50 Immature Gran % (Auto) (0.0-0.4) % Abs Immat Gran (auto) (0.00-0.03) X10*3/uL ESR 28 H (0-20) MM/HR BUN 8 L (9-16) mg/dL POC Glucose 180 H (60-115) mg/dL Random Glucose 225 H (60-115) mg/dL Calcium (8.4-10.2) mg/dL C-Reactive Protein 5.45 H (< or = 0.50) mg/dL 01/10/21 01/11/21 01/11/21 Range/Units 22:00 07:30 09:16 Immature Gran % (Auto) 0.7 H (0.0-0.4) % Abs Immat Gran (auto) 0.06 H (0.00-0.03) X10*3/uL ESR (0-20) MM/HR BUN (9-16) mg/dL POC Glucose 219 H 404 H* (60-115) mg/dL Random Glucose (60-115) mg/dL Calcium (8.4-10.2) mg/dL C-Reactive Protein (< or = 0.50) mg/dL 01/11/21 01/11/21 Range/Units 09:16 11:11 Immature Gran % (Auto) (0.0-0.4) % Abs Immat Gran (auto) (0.00-0.03) X10*3/uL ESR (0-20) MM/HR BUN 8 L (9-16) mg/dL POC Glucose 339 H (60-115) mg/dL Random Glucose 332 H D (60-115) mg/dL Calcium 8.2 L D (8.4-10.2) mg/dL C-Reactive Protein (< or = 0.50) mg/dL Short CBC 01/10/21 01/11/21 Range/Units 19:50 09:16 WBC 10.2 8.1 (4.8-10.8) X10*3/uL Hgb 13.0 13.0 (12.0-16.0) g/dl Hct 40.0 40.0 (37-47) % Plt Count 283 273 (160-400) X10*3/uL BMP 01/10/21 01/11/21 19:50 09:16 Sodium 135 138 Potassium 4.1 4.0 Chloride 96 103 Carbon Dioxide 29 27 BUN 8 L 8 L Creatinine 0.70 0.77 Calcium 8.8 8.2 L D All other labs normal. Imaging Additional studies: CT of foot -images and report reviewed Assessment and Plan (1) Abscess of foot: Status: Acute There appeared to be a superficial shell abscess of the plantar aspect of the left foot as described above. This seems to be from a bulla. I told her that we can open this up and drain this now. I told her that since the bulla is upper facial, she will not need local anesthesia. She initially was very hesitant about it but eventually stated she was willing to go ahead with it. I therefore prepped and draped the area of the bulla. I then used self tip pair of scissors to open this up and unroof it a little bit. There was note of pus that was drained. Cultures of this were taken. I probed this bullet to make sure that we will have enough opening for drainage. I then covered the area with gauze and wrapped the foot with Rosario roll. She tolerated procedure well. There were no immediate complications. I will check on her tomorrow to do the dressing change. We can follow up on the culture report. Procedures Date of Service Date of Service: 01/11/21
[2021-01-11 15:28] VITALS: BP 116/78; PULSE 82; RESP 18; TEMP 35.9; O2SAT 98
--- NOTE | 2021-01-11 16:07 | W.PM.IDCN ---
History of Present Illness Data of Consult Service Date: 01/11/21 Requesting physician: Jonathan Gomez Primary Care Provider: Tena Daniel NP HPI Reason for consult: left diabetic foot infection She presents with four days swelling and redness 1st MTP joint. She has no fever or chills at this time She uses IV drugs,denies using in area. Review of Systems Review of Systems: Yes all other systems are reviewed and are negative PMFSH Past Medical History Medical History Abscess of foot IV drug abuse Type 1 diabetes Family History Family history: reviewed and not pertinent Surgical History Surgical History H/O: hysterectomy Social History Social History Household Members: Unknown / Unable to assess Housing: Unknown / Unable to assess Unable to assess alcohol history related to: Unable to respond Alcohol intake: never Patient Tobacco Use Status: Current someday Tobacco user Tobacco use type: Cigarette Second Hand Smoke Exposure: No Use of substances other than those prescribed or required for medical reasons: Yes Substance Use Type: Crack/Cocaine Substance Use Type Other:: unable to respond/tox screen pending Substance Use Frequency: Occasionally Last Used Substance: Unknown Currently Displaying Signs/Symptoms of Drug Intoxication Withdrawal: No Spiritual Healthcare Practices: unknown Buddhism Healthcare Practices: unknown Cultural Healthcare Practices: unknown Advance Directives: No Advance Directives Information Provided: No Advance Directives on File: No Do you have thoughts of harming others: None Do you have a plan to hurt others: No Plan Recently lost weight without trying: Unsure How much weight loss: Unsure Patient : No service: No Current occupational status: disabled Meds Allergies Allergy/AdvReac Type Severity Reaction Status Date / Time ibuprofen Allergy Anaphylaxis Verified 01/10/21 18:54 Penicillins Allergy Anaphylaxis Verified 01/27/21 15:56 Active Medications: Current Medications Generic Name Dose Route Start Last Admin Trade Name Freq PRN Reason Stop Dose Admin Acetaminophen 650 mg 01/10/21 23:05 01/11/21 02:38 Acetaminophen 325 Mg Tablet PO 650 mg Q6H PRN Administration Pain, Mild (Pain Scale 1-3) Enoxaparin Sodium 40 mg 01/10/21 23:15 01/10/21 23:35 Enoxaparin Sodium 40 Mg/0.4 Ml Syringe SUBCUT Not Given Q24H [facility] Vancomycin HCl 750 mg/ Sodium 265 mls @ 265 mls/hr 01/11/21 08:00 01/11/21 09:22 Chloride IV Infused Q12H [facility] Infusion Piperacillin Sod/Tazobactam 50 mls @ 100 mls/hr 01/11/21 11:00 01/11/21 11:44 Sod 3.375 gm/ Sodium Chloride IV Infused Q6H [facility] Infusion Melatonin 6 mg 01/10/21 23:05 Melatonin 3 Mg Tablet PO BEDTIME PRN Insomnia Morphine Sulfate 4 mg 01/11/21 14:06 01/11/21 14:25 Morphine Sulfate 4 Mg/Ml Cartridge IVPUSH 4 mg Q6H PRN Administration Breakthrough Pain Non-Formulary Medication 0 pump 01/11/21 11:30 01/11/21 11:41 Insulin Aspart U-100 [Novolog U-100 Insulin Aspart] IV 1 pump QIDACHS HÉCTOR Administration Oxycodone HCl 10 mg 01/11/21 09:51 Oxycodone Hcl Immed Release 5 Mg Tablet PO Q6H PRN Pain, Severe (Pain Scale 7-10) Pharmacy Consult 1 each 01/10/21 20:03 Consult Rx Perform Med Rec MISCELLANE ONCE PRN Consult order Pharmacy Consult 1 each 01/10/21 20:10 Consult Rx Vancomycin Dosing MISCELLANE DAILY PRN Consult order Pharmacy Consult 1 each 01/10/21 23:03 Consult Rx Vancomycin Dosing MISCELLANE DAILY PRN Consult order Senna 17.2 mg 01/10/21 23:05 Sennosides 8.6 Mg Tablet PO BEDTIME PRN Constipation Sodium Chloride 3 ml 01/11/21 00:00 01/11/21 07:51 0.9 % Sodium Chloride Flush 3 Ml Syringe IVFLUSH 3 ml QSHIFT [facility] Administration Home Medications Medication Instructions Recorded Confirmed Last Taken Type insulin aspart U-100 100 unit/mL See Rx Instructions .ROUTE .COMPLEX 01/10/21 01/27/21 Unknown History subcutaneous solution (Novolog U-100 Insulin aspart) insulin pump controller 01/10/21 01/27/21 Unknown History ergocalciferol (vitamin D2) 1,250 1,250 mcg PO QWEEK 01/27/21 01/27/21 Unknown History mcg (50,000 unit) capsule (Vitamin D2) methylphenidate HCl 20 mg biphasic 20 mg PO DAILY 01/27/21 01/27/21 Unknown History 50-50 capsule,extended release (Ritalin LA) Physical Exam Vital Signs: Vital Signs: Last Vital Signs Temp 96.7 F L 01/11/21 15:28 Pulse 82 01/11/21 15:28 Resp 18 01/11/21 15:28 BP 116/78 01/11/21 15:28 Pulse Ox 98 01/11/21 15:28 Body Mass Index 22.6 Const: General: cooperative HENMT: Head: Yes normal to inspection Mouth: Normal oral and palatal mucosa present Resp: Effort & Inspection: normal respiratory effort Cardio: Rate: regular rate Rhythm: regular rhythm GI: Palpation (GI): Soft to palpation and nontender Neuro: Other: neuropathy Extrem: Other: left plantar area /great toe erythema Results Labs CBC & Chem 7: 01/11/21 09:16 01/13/21 06:22 Labs: Short CBC 01/10/21 01/11/21 Range/Units 19:50 09:16 WBC 10.2 8.1 (4.8-10.8) X10*3/uL Hgb 13.0 13.0 (12.0-16.0) g/dl Hct 40.0 40.0 (37-47) % Plt Count 283 273 (160-400) X10*3/uL BMP 01/10/21 01/11/21 19:50 09:16 Sodium 135 138 Potassium 4.1 4.0 Chloride 96 103 Carbon Dioxide 29 27 BUN 8 L 8 L Creatinine 0.70 0.77 Calcium 8.8 8.2 L D Assessment and Plan (1) Abscess of foot: Status: Acute (2) IV drug abuse: Status: Acute (3) Diabetic foot infection: Status: Acute There could be gram neg,gram positive There is concern over osteomyelitis Suggest MRI evaluation foot IV Vancomycin and Zosyn for now
[2021-01-11 16:36] LABS: Glucose, Whole Blood 272 mg/dL (60-115)
[2021-01-11] MEDS: oxyCODONE HCl Immed Release 5 MG TABLET 10 MG PO (17:19)
[2021-01-11 19:43] VITALS: BP 113/67; PULSE 68; RESP 18; TEMP 36.4; O2SAT 99
[2021-01-12] MEDS: Morphine Sulfate 4 MG/ML CARTRIDGE IVPUSH ×4 (02:58→21:50)
[2021-01-12 07:23] LABS: Glucose, Whole Blood 331 mg/dL (60-115)
[2021-01-12 07:42] VITALS: BP 120/78; PULSE 74; RESP 18; TEMP 36.3; O2SAT 99
[2021-01-12 08:48] LABS: Vancomycin Trough < 3.0 mcg/mL (10.0-20.0)
[2021-01-12 08:58] LABS: Anion Gap 16 (12-20); Blood Urea Nitrogen 10 mg/dL (9-16); Calcium 8.6 mg/dL (8.4-10.2); Carbon Dioxide 22 mmol/L (22-29); Chloride 102 mmol/L (96-108); Creatinine Clr Calc Pharmacy 80.2; Estimated Glomerular Filt Rate > 60; Glucose Random 397 mg/dL (60-115); Potassium 4.4 mmol/L (3.3-5.1); Sodium 136 mmol/L (135-145)
[2021-01-12] MEDS: vancomycin HCL 1,000 MG in 0.9 % Sodium Chloride 250 ML 270 MG IV ×2 (09:06→21:49)
[2021-01-12] MEDS: 0.9 % Sodium Chloride Flush 3 ML SYRINGE IVFLUSH ×2 (09:06→16:48)
--- NOTE | 2021-01-12 09:24 | HO.PM.IMPN ---
Subjective Subjective Date of Service: 01/12/21 Interval History: seen and examined this AM not really talking much rediscussed with her re: MRI, she is agreeable today d/w her re: suboxone / methadone, does not seem interested reports foot pain Review of Systems General - no fevers or chills Cardiovascular - no chest pain Respiratory - no shortness of breath or cough Abdominal- no abdominal pain, nausea, vomiting, diarrhea Physical Exam Vital Signs: Vital Signs: Last Vital Signs Temp 97.4 F 01/12/21 07:42 Pulse 74 01/12/21 07:42 Resp 18 01/12/21 07:42 BP 120/78 01/12/21 07:42 Pulse Ox 99 01/12/21 07:42 Body Mass Index 22.6 Const: Other: General - no acute distress, appears comfortable Cardiovascular - regular rate and rhythm, S1-S2 Lungs - normal respiratory effort, clear to auscultation bilaterally, no wheezing Abdomen - soft, nontender, no rebound or guarding Extremities - LLE foot in dressing Neuro - awake and alert, no focal deficits Objective Data Current Medications Generic Name Dose Route Start Last Admin Trade Name Freq PRN Reason Stop Dose Admin Acetaminophen 650 mg 01/10/21 23:05 01/11/21 02:38 Acetaminophen 325 Mg Tablet PO 650 mg Q6H PRN Administration Pain, Mild (Pain Scale 1-3) Enoxaparin Sodium 40 mg 01/10/21 23:15 01/11/21 23:42 Enoxaparin Sodium 40 Mg/0.4 Ml Syringe SUBCUT Not Given Q24H HÉCTOR Piperacillin Sod/Tazobactam 50 mls @ 100 mls/hr 01/11/21 11:00 01/12/21 05:10 Sod 3.375 gm/ Sodium Chloride IV Not Given Q6H HÉCTOR Vancomycin HCl 1,000 mg/ 270 mls @ 270 mls/hr 01/12/21 09:00 01/12/21 09:06 Sodium Chloride IV 270 mls/hr Q12H HÉCTOR Administration Melatonin 6 mg 01/10/21 23:05 Melatonin 3 Mg Tablet PO BEDTIME PRN Insomnia Morphine Sulfate 4 mg 01/11/21 14:06 01/12/21 09:06 Morphine Sulfate 4 Mg/Ml Cartridge IVPUSH 4 mg Q6H PRN Administration Breakthrough Pain Non-Formulary Medication 0 pump 01/11/21 11:30 08/04/21 09:05 Insulin Aspart U-100 [Novolog U-100 Insulin Aspart] IV 1 pump QIDACHS HÉCTOR Administration Oxycodone HCl 10 mg 01/11/21 09:51 01/11/21 17:19 Oxycodone Hcl Immed Release 5 Mg Tablet PO 10 mg Q6H PRN Administration Pain, Severe (Pain Scale 7-10) Pharmacy Consult 1 each 01/10/21 20:03 Consult Rx Perform Med Rec MISCELLANE ONCE PRN Consult order Pharmacy Consult 1 each 01/10/21 20:10 Consult Rx Vancomycin Dosing MISCELLANE DAILY PRN Consult order Pharmacy Consult 1 each 01/10/21 23:03 Consult Rx Vancomycin Dosing MISCELLANE DAILY PRN Consult order Senna 17.2 mg 01/10/21 23:05 Sennosides 8.6 Mg Tablet PO BEDTIME PRN Constipation Sodium Chloride 3 ml 01/11/21 00:00 01/12/21 09:06 0.9 % Sodium Chloride Flush 3 Ml Syringe IVFLUSH 3 ml QSHIFT [facility] Administration Labs CBC & Chem 7: 01/11/21 09:16 01/12/21 07:01 Labs: Laboratory Results - last 24 hr 01/11/21 01/11/21 01/11/21 09:16 09:16 11:11 MCV 86.2 MCH 28.0 MCHC 32.5 RDW 14.4 Plt Count 273 MPV 9.4 Immature Gran % (Auto) 0.7 H Neut % (Auto) 69.2 Lymph % (Auto) 20.0 Blair % (Auto) 7.7 Eos % (Auto) 2.0 Baso % (Auto) 0.4 Lymph # (Auto) 1.6 Blair # (Auto) 0.6 Eos # (Auto) 0.2 Baso # (Auto) 0.0 Abs Immat Gran (auto) 0.06 H Absolute Neuts (auto) 5.6 Absolute Nucleated RBC 0.000 Nucleated RBC % (auto) 0.0 Anion Gap 12 Estim Creat Clear Calc 74.0 Estimated GFR > 60 POC Glucose 339 H Random Glucose 332 H D Calcium 8.2 L D Vancomycin Trough 01/11/21 01/12/21 01/12/21 16:11 07:01 07:01 MCV MCH MCHC RDW Plt Count MPV Immature Gran % (Auto) Neut % (Auto) Lymph % (Auto) Blair % (Auto) Eos % (Auto) Baso % (Auto) Lymph # (Auto) Blair # (Auto) Eos # (Auto) Baso # (Auto) Abs Immat Gran (auto) Absolute Neuts (auto) Absolute Nucleated RBC Nucleated RBC % (auto) Anion Gap 16 Estim Creat Clear Calc 80.2 Estimated GFR > 60 POC Glucose 272 H Random Glucose 397 H* Calcium 8.6 Vancomycin Trough < 3.0 L 01/12/21 07:10 MCV MCH MCHC RDW Plt Count MPV Immature Gran % (Auto) Neut % (Auto) Lymph % (Auto) Blair % (Auto) Eos % (Auto) Baso % (Auto) Lymph # (Auto) Blair # (Auto) Eos # (Auto) Baso # (Auto) Abs Immat Gran (auto) Absolute Neuts (auto) Absolute Nucleated RBC Nucleated RBC % (auto) Anion Gap Estim Creat Clear Calc Estimated GFR POC Glucose 331 H Random Glucose Calcium Vancomycin Trough Microbiology Microbiology Results: Microbiology 01/10/21 20:02 Blood Culture - Preliminary Blood - Venous No growth after 24 hours. 01/10/21 19:50 Blood Culture - Preliminary Blood - Venous No growth after 24 hours. Assessment and Plan (1) Diabetic foot infection: Status: Acute Assessment and Plan: This is a 40 yo F with a PMH of IDDM, IVDU - last use 3 days prior to admission who presented to the hospital with complaints of L foot pain, swelling, redness of unknown duration. Her clinial picture is concerning for diabetic foot infection. 1. Diabetic Foot infection s/p bedside I&D of abscess - cultures sent; blood cx negative to date Gen Surg and ID input appcreciated will get MR to rule out osteo vancomcyin/zosyn renal function + vanco trough (per pharmacy) 2. Uncontrolled DM on insulin pump, which patient refuses to remove continue with POC QIDAC 3. Active IVDU reported last use 3 days prior to admission no withdrawal at this time not interested in MAT Full Code DVT pptx, Lovenox Quality Stroke Does the patient have a stroke diagnosis?: No VTE Prior VTE?: No VTE Risk Level:: Medical - moderate - high VTE Device Contraindication: Treatment Not Indicated VTE Drug Contraindication: N/A - Med Ordered
--- NOTE | 2021-01-12 09:37 | PM.EVENT ---
Event Note Date of Service: 01/12/21 Event Note: Patient seen earlier this morning I and D of a right foot abscess was done yesterday at bedside Cultures were taken Refusing to have wound examined or dressings changed Continue antibiotics Follow-up on culture reports Dry dressing changes daily
[2021-01-12 11:31] LABS: Glucose, Whole Blood 533 mg/dL (60-115)
[2021-01-12 11:38] VITALS: BP 115/68; PULSE 64; RESP 18; TEMP 36; O2SAT 100
[2021-01-12] MEDS: Piperacillin Sodium/Tazobactam 3.375 GM in 0.9 % Sodium Chloride 50 ML IV ×3 (11:38→23:18)
[2021-01-12] MEDS: oxyCODONE HCl Immed Release 5 MG TABLET 10 MG PO ×2 (11:43→17:37)
[2021-01-12 12:40] LABS: Glucose, Whole Blood 453 mg/dL (60-115)
--- NOTE | 2021-01-12 13:14 | PM.EVENT ---
Event Note Date of Service: 01/12/21 Event Note: Called by RN to report hyperglycemia. The patient has an insulin pump which she has been using since hospitalization. However, with the sugars increasing, I have requested that she remove this and let us use subcut. insulin to manage her hyperglycemia, which she is refusing. Will continue to encourage her to comply with treatment.
--- NOTE | 2021-01-12 13:59 | MHC.CLN ---
NUTRITION PATIENT WITH INSULIN DEPENDENT DIABETES. DIET CHANGED TO DIABETIC 1800 KCAL. PROVIDES 33.1 KCAL/KG.
--- NOTE | 2021-01-12 14:32 | PC.NURSE ---
Addendum entered by Divya Santillan RN 01/12/21 17:45: 1640- Pt POC 505. Dr. Gomez made aware. Pt still refusing to remove pump to allow MD to manage insulin coverage. Pt made aware of the risks of not getting blood sugar down, specifically risks of DKA. Pt stated, she will not go into DKA . POC adjusted to Q4. MD aware, no other new orders. Original Note: 1130- POC 533. Pt gave herself 11.2 units bolus through insulin pump. Her basal rate is 0.7 units/hr. Refusing lunch. Refusing to remove pump to allow MD to manage insulin coverage. Dr. Gomez made aware. 1250- POC rechecked 453, pt gave herself addition 10.2 unit bolus. MD aware. No new orders. Pt has no complaints at this time.
[2021-01-12 16:52] LABS: Glucose, Whole Blood 505 mg/dL (60-115)
[2021-01-12 19:31] VITALS: BP 133/83; PULSE 52; RESP 16; TEMP 36.6; O2SAT 100
[2021-01-13] VITALS: BP 109/67; PULSE 74; RESP 16; TEMP 36.3; O2SAT 98
[2021-01-13 04:00] VITALS: BP 117/82; PULSE 63; RESP 16; TEMP 36.3; O2SAT 98
[2021-01-13] MEDS: Piperacillin Sodium/Tazobactam 3.375 GM in 0.9 % Sodium Chloride 50 ML IV (04:32)
[2021-01-13] MEDS: Morphine Sulfate 4 MG/ML CARTRIDGE IVPUSH (04:33)
[2021-01-13 08:00] VITALS: BP 97/68; PULSE 72; RESP 16; TEMP 36.3; O2SAT 100
[2021-01-13 08:03] LABS: Anion Gap 17 (12-20); Blood Urea Nitrogen 12 mg/dL (9-16); Calcium 8.4 mg/dL (8.4-10.2); Carbon Dioxide 21 mmol/L (22-29); Chloride 100 mmol/L (96-108); Estimated Glomerular Filt Rate > 60; Glucose Random 429 mg/dL (60-115); Potassium 4.6 mmol/L (3.3-5.1); Sodium 133 mmol/L (135-145)
[2021-01-13 08:14] LABS: Glucose, Whole Blood 409 mg/dL (60-115)
[2021-01-13] MEDS: Acetaminophen 325 MG TABLET 650 MG PO (08:33)
[2021-01-13] MEDS: oxyCODONE HCl Immed Release 5 MG TABLET 10 MG PO (08:34)
[2021-01-13] MEDS: vancomycin HCL 1,000 MG in 0.9 % Sodium Chloride 250 ML 270 MG IV (08:38)
--- NOTE | 2021-01-13 08:41 | PM.EVENT ---
Event Note Date of Service: 01/13/21 Event Note: Notified by RN that patiented wanted to be discharged today as she had some things to take care of. Patient seen bedside. She is unwilling to stay in the hospital. Explained to her the risks of leaving AMA which include but not limited toloss of limb, worsening of infection and even . Furthermore, her blood sugars are not controlled and she is at risk for going into DKA. Patient is AAOx3 and understands these risks. Despite this, she would like to leave AMA. She has been advised to return to the ED if she changes her mind. She has also been advised to f/u her PCP. Her wound Cx returned positive for MRSA which is sensitive to Doxycycline, which I will send to her pharmacy for a 10 day supply.
--- NOTE | 2021-01-13 09:21 | MHC.CM.PN ---
PATIENT IS LEAVING AMA. CM PROVIDED BUS PASSES FOLLOW UP APPOINTMENT WITH SURGEON CURRENTLY IN PROCESS. APPOINTMENT WILL BE PLACED IN PATIENT'S DC PAPERS. RN AWARE OF PLAN.
--- NOTE | 2021-01-13 09:29 | MHC.CM.PN ---
CALL TO [facility] RN MARCIO ANGELA ([phone]) ACCORDING TO MARCIO, PATIENT IS STILL IN THE ONBOARDING PROCESS AND DOES NOT YET HAVE SERVICES. PHONE NUMBER ON FILE WITH [facility] IS [phone]. PATIENT DOES STATES THAT SHE DOES NOT HAVE A PHONE. JULIO CÉSAR RN, MARCIO, IS AWARE THAT PATIENT IS LEAVING AMA AND ASKS THAT [facility] FOR PATIENT'S FOLLOW UP SURGICAL APPOINTMENT, BEING DONE IMM 01/12 IN CHART.
--- NOTE | 2021-01-13 10:13 | MHC.CM.PN ---
PATIENT ASKING FOR HER LEVEMIR PHRAMACY HERE DOES NOT HAVE THIS ON FILE. CALL TO [facility] AND PHARMACIST CHRISTOPHER DOES NOT HAVE ANY LEVEMIR ON FILE; ONLY NOVALOG WHICH IS READY FOR DINING ROOM HOSTESS. PATIENT AWARE. CALL TO PATIENT'S [facility] (FLAKITA GOODE [phone]) PER PATIENT REQUEST. WHILE ON HOLD FOR PHARMACY AT THIS CONTACT LOCATION, PATIENT LEFT THE FLOOR. PATIENT MADE AWARE THAT SHE WILL NEED TO FOLLOW UP WITH HER [facility], WE DO NOT HAVE HER MEDS ON FILE HERE.
--- NOTE | 2021-01-13 10:26 | PC.NURSE ---
PT LEFT AMA AT APPROX 1015 RISKS OF LEAVING WERE EXPLAINED BY DR REINOSO.. PT AGREED TO ONE MORE INFUSIONS OF VANCO. IV WAS REMOVED. LEFT FOOT DSG WAS CHANGED. DRESSING SUPPLIES WERE GIVEN TO PT. PT BLOOD SUGAR WAS IN THE 400'S SHE STATE HER INSULIN PUMP WAS NO WORKING. SHE REFUSED INTERVENTION FROM STAFF. SCRIPT FOR DOXY WAS SENT TO [facility]. APPOINTMENT WAS MADE WITH DR KONG FOR Jan. PT WAS GIVEN BUS PASS. 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 PT WAS VERY IMPATIENT. SHE WAS ESCORTED TO FRONT ENTERANCE VIA WHEELCHAIR
--- NOTE | 2021-01-13 14:07 | PM.DS ---
DS: Providers Provider Date of Service: 01/13/21 Date of admission: 01/10/21 23:06 Primary care physician: Tena Daniel NP Consults: 01/10/21 23:03 Consult to Infectious Diseases Routine Consulting Provider: Slime Richmond Reason for consultation: DM foot infection 01/11/21 10:27 Consult to General Surgery Routine Consulting Provider: Judson Marino Reason for consultation: diabetic foot infection, ? need for I&D 01/12/21 16:22 Consult to Care Team Routine Comment: Reason for consultation: CRACK/COKE,HEROIN IV DRUGS DS: Diagnosis Discharge Diagnosis (1) Diabetic foot infection: Status: Acute DS: Medications Discharge Medications Home Medications: Home Medications Medication Instructions Recorded Confirmed insulin aspart U-100 100 unit/mL See Rx Instructions .ROUTE .COMPLEX 01/10/21 01/10/21 subcutaneous solution (Novolog U-100 Insulin aspart) insulin pump controller 01/10/21 01/10/21 Previous Rx's Medication Instructions Recorded doxycycline hyclate 100 mg capsule 100 mg PO BID #20 cap 01/13/21 DS: Summary Hospital Course Hospital Course: Discharge diagnosis 1. Diabetic foot infection due to MRSA 2. Uncontrolled diabetes mellitus 3. Active IV drug use with opiates 4. Noncompliance with treatment, left against medical advice HPI from the admission H&P: 40-year-old female with a past medical history of insulin-dependent diabetes-on insulin pump, history of IV drug abuse, tobacco dependence, homeless presented to the hospital with a chief complaint of left foot pain redness and swelling. Patient reported over the past couple days she has been having increased pain redness and swelling of her left foot, limiting her mobility; noted to have small skin abrasions on the bottom of the foot with some brownish discharge; hence decided to come to the hospital for further management. Patient reports that she smokes cigarettes and also uses IV drugs; but has not used the drugs in the past 3 days. Patient denies any fever chills cough or shortness of breath Denies any chest pain palpitations lightheadedness or dizziness Hospital Course: Patient presented to the hospital with signs and symptoms suggestive of a diabetic foot infection. She was started on broad-spectrum IV antibiotics in the form of vancomycin and Zosyn. She was evaluated in the hospital by both Infectious Disease as well as General surgery. Her CT showed signs of cellulitis and possible abscess which was opened up bedside vice general surgery with cultures being sent and resulting as MRSA. An MRI was also checked to rule out osteomyelitis and was negative. On the day of discharge, the patient despite being explained the risks of doing so decided to sign herself out against medical advice stating that she personal matters such as looking for an apartment to deal with today. She was given a 10 day course of oral doxycycline and was advised to return to the emergency room should she change her mind. During the hospitalization, the patient was noncompliant with treatment throughout. She had her own insulin pump and did not allow us to treat her hyperglycemia instead opting to administer herself insulin despite increasing levels of her point of cares. Explained the risk of going into DKA but she stated ?I am not going to go into DKA.? Furthermore, after being hesitant initially she did allow at bedside I and D to be completed by General surgery however she refused to have her foot examined the day after to see its disease course. Lastly in regards to her intravenous drug use, she did not have any withdrawal symptoms in the hospital. Medication assessment treatment as well as Addiction Medicine consultation was offered to her but she refused this stating that she has stopped on her own without any help in the past and will do so again. Time Spent with Patient Time attestation: Total time spent providing and/or coordinating discharge services: Discharge coordination time: Greater than 30 minutes Quality: Stroke Does the patient have a stroke diagnosis?: No Physical Exam Vital Signs: Vital Signs: Last Vital Signs Temp 97.4 F 01/13/21 08:00 Pulse 72 01/13/21 08:00 Resp 16 01/13/21 08:00 BP 97/68 01/13/21 08:00 Pulse Ox 100 01/13/21 08:00 Body Mass Index 22.6 Const: Other: General - no acute distress, appears comfortable Cardiovascular - regular rate and rhythm, S1-S2 Lungs - normal respiratory effort, clear to auscultation bilaterally, no wheezing Abdomen - soft, nontender, no rebound or guarding Extremities - RLE dressing in place Neuro - awake and alert, oriented x 3, no focal deficits; DS: Data Data Completed and Pending Labs on day of discharge: Laboratory Results - last 24 hr 01/12/21 01/13/21 01/13/21 16:45 06:22 08:01 Sodium 133 L Potassium 4.6 Chloride 100 Carbon Dioxide 21 L Anion Gap 17 BUN 12 Creatinine 0.75 Estim Creat Clear Calc 76.0 Estimated GFR > 60 POC Glucose 505 H* 409 H* Random Glucose 429 H* Calcium 8.4 Preliminary micro results at discharge 01/10/21 20:02 Blood Culture - Preliminary Blood - Venous No growth after 48 hours. 01/10/21 19:50 Blood Culture - Preliminary Blood - Venous No growth after 48 hours. Discharge Plan Discharge Patient Disposition: Left Against Medical Advice Discharge Diagnosis: Foot infection, Left against medical advice Referrals: Tena Daniel NP [Primary Care Provider] - 1 Week Judson Marino MD [Physician] - 01/19/21 3:45 pm (You have a follow up appointment with Dr. Marino on Sunday, January 19 at 3:45 pm. Please call your doctor's office if you need to reschedule.) Discharge Medications: New doxycycline hyclate 100 mg capsule 100 mg PO BID Qty: 20 RF: 0 Continued insulin aspart U-100 [Novolog U-100 Insulin aspart] 100 unit/mL solution See Rx Instructions .ROUTE .COMPLEX RF: 0 (DME) insulin pump controller Misc MISCELLANEOUS RF: 0 Discharge Orders: Discharge Order (Routine); Ordered 01/13/21 Ordered By: Jonathan Gomez Care Plan Goals: Left AMA Health Concerns: Left AMA Plan of Treatment: Left AMA Assessment: Left AMA Discharge Date/Time: 01/13/21 10:20
== END 2021-01-13 10:20 | disposition left against medical advice (07) | DRG 638 ==
LOC: HO.ED 23:05 → HO.EDOVER 23:21 → HO.S3 23:24
PROVIDERS: Physician Assistant; Admitting Provider Hospitalist; Emergency Provider Internal Medicine; PCP Nurse Practitioner Adult Health; Visit Provider Family Medicine
DX: E11.628 Type 2 diabetes mellitus with other skin complications (principal); L97.429 Non-pressure chronic ulcer of left heel and midfoot with unspecified severity; L03.116 Cellulitis of left lower limb; L02.612 Cutaneous abscess of left foot; F17.210 Nicotine dependence, cigarettes, uncomplicated; Z71.6 Tobacco abuse counseling; Z20.822 Contact with and (suspected) exposure to COVID-19; Z59.0 Homelessness; B95.62 Methicillin resistant Staphylococcus aureus infection as the cause of diseases classified elsewhere; Z96.41 Presence of insulin pump (external) (internal); E11.621 Type 2 diabetes mellitus with foot ulcer; Z88.6 Allergy status to analgesic agent; Z79.4 Long term (current) use of insulin
CPT/HCPCS: 36415; 73600; 73620; 73701; 73718; 80048; 80202; 82947; 83605; 85025; 85027; 85652; 86140; 87040; 87071; 87077; 87186; 87205; 87635; 93971; 99284; J2270; J2543; J3370; Q9967

== ENCOUNTER 2021-01-27 11:03 | Inpatient (IN) | payer OTHER, SELFPAY ==
[2021-01-27] VITALS (10 sets, daily range): BP systolic 83–104; BP diastolic 45–69; PULSE 56–96; RESP 11–17; TEMP 36.2–36.7; O2SAT 96–100; BMI 20.8; BMI 21.1
--- NOTE | ~2021-01-27 | XR_ITS ---
EXAMINATION: XR FOOT, LEFT CLINICAL INFORMATION: Assess for infection COMPARISON: None TECHNIQUE: AP, lateral, and oblique views of the left foot. FINDINGS: No periostitis or osteolysis. The bones and soft tissues are normal. No fracture. Alignment is anatomic. Joint spaces are maintained. XR/XR foot LT 2V IMPRESSION: No specific findings of osteomyelitis radiographically. No soft tissue air.
--- NOTE | 2021-01-27 11:32 | ECG_ITS ---
Test Reason : CHEST PAIN Blood Pressure : / mmHG Vent. Rate : 085 BPM Atrial Rate : 085 BPM P-R Int : 122 ms QRS Dur : 074 ms QT Int : 388 ms P-R-T Axes : 074 067 043 degrees QTc Int : 461 ms Normal sinus rhythm Normal ECG When compared with ECG of 06-OCT-2020 05:24, No significant change was found Referred By: Maral Pop Electronically Signed By:HEIDI MILLIGAN
[2021-01-27] MEDS: LORazepam 1 MG TABLET 2 MG PO (12:13)
[2021-01-27] MEDS: Insulin Lispro 100 UNIT/ML 3 ML VIAL 10 UNIT SUBCUT (12:13)
[2021-01-27] MEDS: Acetaminophen 325 MG TABLET 975 MG PO (12:13)
--- NOTE | 2021-01-27 12:13 | ED_ITS ---
HPI - General Adult General Chief complaint: General Medical Stated complaint: Hyperglycemia Time Seen by Provider: 01/27/21 11:26 Source: patient Mode of arrival: ambulatory Limitations: other (Poor historian) History of Present Illness HPI narrative: 40-year-old female with a past medical history of insulin-depend ent diabetes with an insulin pump, IV drug abuse with opioids, tobacco dependent who is presenting to the ED with complaints of ?my insulin. Working about 4 days ago and I have been unable to check my blood sugar or give myself insulin?. She also reports ?my whole body hurts and I have been vomiting . Screaming and very belligerent calling all the staff names saying that she ?needs fucking Tyle nol in insulin?. Continues to scream ?I do not need labs or IV fluids I just need fucking insulin just give me fucking insulin?. I explained to her that we need to obtain labs because she can be in DKA and she understands and is now agreeable to labs and IV fluids. I also offered Tylenol and Ativan and patient is agreeable. She denies any fevers, chills, chest pain, shortness of breath, palpitations, dyspnea exertion, orthopnea, sore throat, cough, abdominal pain, back pain, dysuria, hematuria, abnormal vaginal discharge, diarrhea, constipation, recent travel or sick contacts or any other symptoms complaints or concerns at this time. MD complaint: Hyperglycemia Related Data Home Medications Medication Instructions Recorded Confirmed insulin aspart U-100 100 unit/mL See Rx Instructions .ROUTE .COMPLEX 01/10/21 01/10/21 subcutaneous solution (Novolog U-100 Insulin aspart) insulin pump controller 01/10/21 01/10/21 Previous Rx's Medication Instructions Recorded doxycycline hyclate 100 mg capsule 100 mg PO BID #20 cap 01/13/21 Allergies Allergy/AdvReac Type Severity Reaction Status Date / Time ibuprofen Allergy Anaphylaxis Verified 01/10/21 18:54 Review of Systems Review of Systems: Constitutional : No Weight loss, No Fever, No Chills, No Night Sweats, No Fatigue, No Malaise ENT/Mouth : No Hearing loss, No Ear Pain, No Nasal Congestion, No Sinus Pain, No Hoarseness, No sore throat, No Rhinorrhea, No Swallowing Difficulty Eyes: No Eye Pain, No Swelling, No Redness, No Foreign Body, No Discharge, No Vision Changes Cardiovascular : No Chest Pain, No SOB, No Dyspnea on Exertion, No Orthopnea, No Edema, No Palpitations Respiratory : No Cough, No Sputum, No Wheezing, No Smoke Exposure, No Dyspnea Gastrointestinal : Positive nausea/vomiting, No Diarrhea, No Constipation, No abdominal Pain, No Hematochezia, No Melena Genitourinary : no irregular bleeding, No Dysuria, No Urinary Frequency, No Hematuria, No Urinary Incontinence, No Urgency, No Flank Pain, No Urinary Flow Changes, No Hesitancy Musculoskeletal : No joint pain, No Myalgias, No Joint Swelling Skin : No Skin Lesions, No rash Neuro : No Weakness, No Numbness, No Paresthesias, No Loss of Consciousness, No Dizziness, No Headache Psych : No Anxiety/Panic, No Depression, No SI/HI/AH/VH, No Social Issues, Heme/Lymph: No Bruising, No Bleeding,No Lymphadenopathy Endocrine : Positive hyperglycemia, No Polyuria, No Polydipsia, No Temperature Intolerance Yes all other systems are reviewed and are negative FOR[facility]LY [facility] Past Medical History Attestation statement: The following information was validated with the patient. Medical History Abscess of foot IV drug abuse Type 1 diabetes Surgical History H/O: hysterectomy Social History Social History Household Members: None Alcohol intake: never Patient Tobacco Use Status: Current someday Tobacco user Tobacco use type: Cigarette Second Hand Smoke Exposure: No Use of substances other than those prescribed or required for medical reasons: Yes Substance Use Type: Crack/Cocaine Substance Use Type Other:: fentanyl Substance Use Frequency: Occasionally Advance Directives: No Advance Directives Information Provided: No Patient : No service: No Current occupational status: disabled Physical Exam Vital Signs: Vital Signs: Last Vital Signs Temp 98.0 F 01/27/21 11:16 Pulse 96 01/27/21 11:16 Resp 17 01/27/21 11:16 BP 88/46 L 01/27/21 11:16 Pulse Ox 100 01/27/21 11:16 Body Mass Index 20.8 vital signs have been reviewed as normal and appeared to be correct. Blood pressure hypotensive 88/46. Heart rate normal. Respiration rate normal. Temperature normal. Oxygen saturation normal. Appearance: Alert. Very agitated screaming multiple bad words at everyone that walks into the room. Oriented X3. No acute distress. Head: Normal external exam. Normocephalic. Atraumatic. Eyes: PERRLA. EOMI. Conjunctiva and sclera normal. Eyelids normal. ENT:Pharynx normal. Uvula midline. Moist mucous membranes. Neck: Normal inspection. Neck supple. FROM. No adenopathy. Thyroid Normal. No meningeal signs. No neck mass noted. CVS: Normal heart rate and rhythm. Heart sound normal. Pulses normal throughout. No murmurs/rales/gallops. Respiratory: No respiratory distress. Painless inspiration. Breath sounds normal. No wheezes/rales/rhonchi noted. Chest nontender. No accessory muscle usage noted or decreased air movement noted. Abdomen: Soft and nontender. Bowel sounds normal in all 4 quadrants. No distention noted. No organomegaly noted. No visible injury noted. Back: No CVA tenderness. Full range of motion noted. No rashe s/lesion/induration/fluctuance or signs of infection noted. Skin: Skin warm and dry. Normal skin color. Normal skin turgor. No rashes/lesions/lacerations noted. Extremities: No lower extremity edema. No calf tenderness is noted. Extremities exhibit normal range of motion. Extremities nontender. Neuro: Oriented X 3. No motor deficit. No sensory deficit. Reflexes normal. Normal steady gait. No focal neuro deficits noted. Vascular: + radial pulses/+ 2 distal pedal pulses/+2 dorsalis pedis b/l. Normal cap refill. No cyanosis noted to upper extremity nails and lower extremity toes nails. Course Course Course Narrative: 11:30am - 40-year-old female with a past medical history of insulin-dependent diabetes with an insulin pump, IV drug abuse with opioids, tobacco dependent who is pr esenting to the ED with complaints of hyperglycemia due to her insulin pump not working for approximately 4 days with associated body aches and nausea/vomiting. - patient is being very agitated and very aggressive screaming foul names to all the staff reporting that we just need to give her insulin nothing else. Although I was able to convince her to have labs, EKG and IV fluids. Plan: Labs, acetone level, EKG, blood cultures, lactic acid obtained a POC at this time. Start IV fluids as the patient allows us to, give 2 mg of Ativan, 975 mg of Tylenol and 10 units of subcu insulin as patient does not want IV insulin she wanted subcutaneously. Then re-evaluate. Reevaluation(s) Reevaluation #1: - labs reviewed and patient with an elevated white blood cell count 16573. Sodium 131. Chloride 94. Carbon dioxide 12. Anion gap 29. Glucose 514 then with blood drawl now at 487. Calcium 8.2. Total bilirubin 1.5. AST 23 3. ALT 289. Alkaline phosphate 222. Total protein 6.4. Albumin 3.3. Lactic acid is 1.9. Serum quant negative for . Acetone level large. Patient negative for COVID/RSV/flu. - therefore patient is in DKA and we will be giving another 10 units of IV insulin more IV fluids and start the patient on insulin drip at 10 units an hour and plan to admit to the ICU. Dr. Brown to admit at this time. Time: 14:50 Medical Decision Making Medical Records Medical records reviewed: Yes I reviewed the patient's medical records. Lab Data Lab results reviewed: Yes I reviewed the patient's lab results. Result diagrams: 01/27/21 13:35 01/27/21 13:35 Labs: Lab Results 01/27/21 01/27/21 01/27/21 Range/Units 13:18 13:34 13:35 WBC 11.5 H (4.8-10.8) X10*3/uL RBC 4.43 (4.20-5.50) X10*6/uL Hgb 12.0 (12.0-16.0) g/dl Hct 36.9 L (37-47) % MCV 83.3 (80-98) fL MCH 27.1 (27.0-33.0) pg MCHC 32.5 (31.0-35.0) g/dl RDW 15.9 (11.0-16.0) % Plt Count 268 (160-400) X10*3/uL MPV 10.3 (9.4-12.3) fL Immature Gran % (Auto) 0.8 H (0.0-0.4) % Neut % (Auto) 86.2 H (45-73) % Lymph % (Auto) 8.4 L (20-40) % [place] % (Auto) 4.3 (2-11) % Eos % (Auto) 0.1 (0-4) % Baso % (Auto) 0.2 (0-2) % Lymph # (Auto) 1.0 L (1.2-4.9) X10*3/uL [place] # (Auto) 0.5 (0.1-1.2) X10*3/uL Eos # (Auto) 0.0 (0.0-0.4) X10*3/uL Baso # (Auto) 0.0 (0.0-0.2) X10*3/uL Abs Immat Gran (auto) 0.09 H (0.00-0.03) X10*3/uL Absolute Neuts (auto) 9.9 H (2.0-8.3) X10*3/uL Absolute Nucleated RBC 0.000 (0.0-0.012) X10*3/uL Nucleated RBC % (auto) 0.0 (0.0-0.2) /100WBC Hold Purple Top PT (9.9-13.0) SEC INR (0.9-1.1) Sodium (135-145) mmol/L Potassium (3.3-5.1) mmol/L Chloride (96-108) mmol/L Carbon Dioxide (22-29) mmol/L Anion Gap (12-20) BUN (9-16) mg/dL Creatinine (0.5-1.4) mg/dL Estim Creat Clear Calc Estimated GFR POC Glucose 487 H* (60-115) mg/dL Random Glucose (60-115) mg/dL Lactic Acid 1.9 (0.5-2.0) mmol/L Calcium (8.4-10.2) mg/dL Magnesium (1.6-2.6) mg/dL Total Bilirubin (0.0-1.0) mg/dL AST (5-31) U/L ALT (0-31) U/L Alkaline Phosphatase (39-117) U/L Total Protein (6.5-8.0) g/dL Albumin (3.5-5.0) g/dL Beta HCG, Quant mIU/mL Acetone, Qual (Negative) Coronavirus (PCR) (Negative) Influenza Type A (PCR) (Negative) Influenza Type B (PCR) (Negative) RSV RNA Qual (PCR) (Negative) 01/27/21 01/27/21 01/27/21 Range/Units 13:35 13:35 13:35 WBC (4.8-10.8) X10*3/uL RBC (4.20-5.50) X10*6/uL Hgb (12.0-16.0) g/dl Hct (37-47) % MCV (80-98) fL MCH (27.0-33.0) pg MCHC (31.0-35.0) g/dl RDW (11.0-16.0) % Plt Count (160-400) X10*3/uL MPV (9.4-12.3) fL Immature Gran % (Auto) (0.0-0.4) % Neut % (Auto) (45-73) % Lymph % (Auto) (20-40) % [place] % (Auto) (2-11) % Eos % (Auto) (0-4) % Baso % (Auto) (0-2) % Lymph # (Auto) (1.2-4.9) X10*3/uL [place] # (Auto) (0.1-1.2) X10*3/uL Eos # (Auto) (0.0-0.4) X10*3/uL Baso # (Auto) (0.0-0.2) X10*3/uL Abs Immat Gran (auto) (0.00-0.03) X10*3/uL Absolute Neuts (auto) (2.0-8.3) X10*3/uL Absolute Nucleated RBC (0.0-0.012) X10*3/uL Nucleated RBC % (auto) (0.0-0.2) /100WBC Hold Purple Top SEE NOTE PT 11.8 (9.9-13.0) SEC INR 1.0 (0.9-1.1) Sodium 131 L (135-145) mmol/L Potassium 4.0 (3.3-5.1) mmol/L Chloride 94 L (96-108) mmol/L Carbon Dioxide 12 L (22-29) mmol/L Anion Gap 29 H (12-20) BUN 16 (9-16) mg/dL Creatinine 1.11 (0.5-1.4) mg/dL Estim Creat Clear Calc 51.3 Estimated GFR 55 POC Glucose (60-115) mg/dL Random Glucose 514 H* (60-115) mg/dL Lactic Acid (0.5-2.0) mmol/L Calcium 8.2 L (8.4-10.2) mg/dL Magnesium 2.0 (1.6-2.6) mg/dL Total Bilirubin 1.5 H (0.0-1.0) mg/dL AST 233 H (5-31) U/L ALT 289 H (0-31) U/L Alkaline Phosphatase 222 H D (39-117) U/L Total Protein 6.4 L (6.5-8.0) g/dL Albumin 3.3 L (3.5-5.0) g/dL Beta HCG, Quant < 2 mIU/mL Acetone, Qual Large H (Negative) Coronavirus (PCR) (Negative) Influenza Type A (PCR) (Negative) Influenza Type B (PCR) (Negative) RSV RNA Qual (PCR) (Negative) 01/27/21 Range/Units 13:37 WBC (4.8-10.8) X10*3/uL RBC (4.20-5.50) X10*6/uL Hgb (12.0-16.0) g/dl Hct (37-47) % MCV (80-98) fL MCH (27.0-33.0) pg MCHC (31.0-35.0) g/dl RDW (11.0-16.0) % Plt Count (160-400) X10*3/uL MPV (9.4-12.3) fL Immature Gran % (Auto) (0.0-0.4) % Neut % (Auto) (45-73) % Lymph % (Auto) (20-40) % [place] % (Auto) (2-11) % Eos % (Auto) (0-4) % Baso % (Auto) (0-2) % Lymph # (Auto) (1.2-4.9) X10*3/uL [place] # (Auto) (0.1-1.2) X10*3/uL Eos # (Auto) (0.0-0.4) X10*3/uL Baso # (Auto) (0.0-0.2) X10*3/uL Abs Immat Gran (auto) (0.00-0.03) X10*3/uL Absolute Neuts (auto) (2.0-8.3) X10*3/uL Absolute Nucleated RBC (0.0-0.012) X10*3/uL Nucleated RBC % (auto) (0.0-0.2) /100WBC Hold Purple Top PT (9.9-13.0) SEC INR (0.9-1.1) Sodium (135-145) mmol/L Potassium (3.3-5.1) mmol/L Chloride (96-108) mmol/L Carbon Dioxide (22-29) mmol/L Anion Gap (12-20) BUN (9-16) mg/dL Creatinine (0.5-1.4) mg/dL Estim Creat Clear Calc Estimated GFR POC Glucose (60-115) mg/dL Random Glucose (60-115) mg/dL Lactic Acid (0.5-2.0) mmol/L Calcium (8.4-10.2) mg/dL Magnesium (1.6-2.6) mg/dL Total Bilirubin (0.0-1.0) mg/dL AST (5-31) U/L ALT (0-31) U/L Alkaline Phosphatase (39-117) U/L Total Protein (6.5-8.0) g/dL Albumin (3.5-5.0) g/dL Beta HCG, Quant mIU/mL Acetone, Qual (Negative) Coronavirus (PCR) NEGATIVE (Negative) Influenza Type A (PCR) NEGATIVE (Negative) Influenza Type B (PCR) NEGATIVE (Negative) RSV RNA Qual (PCR) NEGATIVE (Negative) ECG Data Attestation: I personally reviewed and interpreted this ECG as follows: Interpretation: Normal sinus rhythm with a ventricular rate of 85 with a normal [place] interval normal QRS duration normal QT/QTC interval. No acute ischemic change are noted. Similar when compared to prior EKG 10/06/2020. Critical Care Time Critical Care Time Critical Care Time: Yes Total Critical Care Time: 60 Attestation: I personally attest to this time spent taking care of the patient Discharge Plan Discharge Clinical Impression: DKA (diabetic ketoacidosis), Acute hyperglycemia Patient Disposition: Admitted As Inpatient
--- NOTE | 2021-01-27 12:15 | PC.NURSE ---
patients iv site that was inserted by ems was infiltrated and removed, pt refused new iv site, pt also refusing dr. perry and requested new provider. 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
--- NOTE | 2021-01-27 12:20 | PC.NURSE ---
pt refusing labs as well
[2021-01-27 13:22] LABS: Glucose, Whole Blood 487 mg/dL (60-115)
--- NOTE | 2021-01-27 13:30 | PC.NURSE ---
pt refusing vitals
[2021-01-27 13:51] LABS: MANUAL DIFF FLAG NO
[2021-01-27 13:54] LABS: Basophils Percent Auto 0.2 % (0-2); Eosinophils Percent Auto 0.1 % (0-4); Hematocrit 36.9 % (37-47); Imm Gran Abs Auto 0.09 X10*3/uL (0.00-0.03); Imm Gran Pct Auto 0.8 % (0.0-0.4); Lymphocytes Percent Auto 8.4 % (20-40); Mean Corpuscular HGB Conc 32.5 g/dl (31.0-35.0); Mean Corpuscular Hemoglobin 27.1 pg (27.0-33.0); Mean Corpuscular Volume 83.3 fL (80-98); Mean Platelet Volume 10.3 fL (9.4-12.3); Monocytes Absolute Auto 0.5 X10*3/uL (0.1-1.2); Monocytes Percent Auto 4.3 % (2-11); Neutrophils Absolute Auto 9.9 X10*3/uL (2.0-8.3); Neutrophils Percent Auto 86.2 % (45-73); Platelet Count 268 X10*3/uL (160-400); Red Blood Count 4.43 X10*6/uL (4.20-5.50); Red Cell Distribution Width 15.9 % (11.0-16.0); White Blood Count 11.5 X10*3/uL (4.8-10.8)
[2021-01-27 14:05] LABS: Prothrombin Time 11.8 SEC (9.9-13.0)
[2021-01-27 14:16] LABS: Lactic Acid 1.9 mmol/L (0.5-2.0)
[2021-01-27 14:25] LABS: Acetone, serum QL Large (Negative)
[2021-01-27 14:32] LABS: Influenza A PCR NEGATIVE (Negative); Influenza B PCR NEGATIVE (Negative); Resp Syncy Virus RNA Qual PCR NEGATIVE (Negative); SARS COV2 PCR INHOUSE NEGATIVE (Negative)
[2021-01-27 14:35] LABS: Alanine Aminotransferase 289 U/L (0-31); Albumin Level 3.3 g/dL (3.5-5.0); Alkaline Phosphatase 222 U/L (39-117); Anion Gap 29 (12-20); Aspartate Amino Transferase 233 U/L (5-31); Bilirubin Total 1.5 mg/dL (0.0-1.0); Blood Urea Nitrogen 16 mg/dL (9-16); Calcium 8.2 mg/dL (8.4-10.2); Carbon Dioxide 12 mmol/L (22-29); Chloride 94 mmol/L (96-108); Creatinine Clr Calc Pharmacy 51.3; Estimated Glomerular Filt Rate 55; Glucose Random 514 mg/dL (60-115); Sodium 131 mmol/L (135-145); Total Protein 6.4 g/dL (6.5-8.0)
[2021-01-27 14:39] LABS: HCG Quantitative < 2 mIU/mL
[2021-01-27] MEDS: Insulin Regular, Human 100 UNIT/ML 3 ML VIAL 10 UNIT IVPUSH (15:07)
[2021-01-27] MEDS: 0.9 % Sodium Chloride 1,000 ML 999 ML IVCONT (15:13)
[2021-01-27] MEDS: Insulin Regular/NS 100 UNIT/100 ML PLAST..BAG 10 UNIT IVCONT (15:15)
--- NOTE | 2021-01-27 16:08 | PHA.MEDREC ---
MED REC COMPLETE, NOT ABLE TO CONVERSE WITH PATIENT, HISTORY TAKEN FROM DOCTORS OFFICE, LATEST APT AUGUST 2020 Pharmacy Consult ? Medication Reconciliation Pharmacy has completed the medication reconciliation.
--- NOTE | 2021-01-27 16:08 | PM.CCHP ---
History of Present Illness Date of Service: 01/27/21 Chief Complaint: Weakness nausea vomiting stopped insulin 3 days ago 40-year-old female longstanding substance abuse IV drug abuser presented with the above complaint belligerent and noted that she had no insulin and the insulin pump for 3 days and was feeling weak and nauseous and vomiting need to be sedated to cooperate with small dose IV Ativan hydrated with 2 L of IV normal saline found to be in a positive anion gap metabolic acidosis with positive urine ketones and mild pseudo hyponatremia due to hyperglycemia with a glucose of over 500 and all consistent with diabetic ketoacidosis but we also noted that 2 weeks ago she presented with a left foot cellulitis and we now have what looks like puncture wounds on the plantar surface underlying the 1st MTP joint and the depth of the infection is difficult to gauge but clearly needs to be cultured and to cover with vancomycin and meropenem in light of penicillin and nonsteroidal anti-inflammatory allergies manifested by anaphylaxis No other areas of vena puncture that appear to be infected no other areas of skin injection or between the toes she somewhat dirty and unkempt Review of Systems Review of Systems: Did not note fever or chills Yes all other systems are reviewed and are negative [facility] Past Medical History Medical History Abscess of foot IV drug abuse Type 1 diabetes Surgical History Surgical History H/O: hysterectomy Social History Social History Household Members: None Alcohol intake: never Patient Tobacco Use Status: Current someday Tobacco user Tobacco use type: Cigarette Second Hand Smoke Exposure: No Use of substances other than those prescribed or required for medical reasons: Yes Substance Use Type: Crack/Cocaine Substance Use Type Other:: fentanyl Substance Use Frequency: Occasionally Advance Directives: No Advance Directives Information Provided: No Patient : No service: No Current occupational status: disabled Meds Allergies Allergy/AdvReac Type Severity Reaction Status Date / Time ibuprofen Allergy Anaphylaxis Verified 01/10/21 18:54 Penicillins Allergy Anaphylaxis Verified 01/27/21 15:56 Active Medications: Current Medications Generic Name Dose Route Start Last Admin Trade Name Freq PRN Reason Stop Dose Admin Insulin Human Regular 100 unit in 100 mls @ 0 mls/hr 01/27/21 14:45 Myxredlin IVCONT .Q0M HÉCTOR Protocol Per Protocol Sodium Chloride 1,000 mls @ 999 mls/hr 01/27/21 15:15 01/27/21 15:13 Ns IVCONT 01/27/21 16:15 999 mls/hr .Q1H1M HÉCTOR Administration Vancomycin HCl 1,000 mg/ 270 mls @ 270 mls/hr 01/27/21 15:16 Sodium Chloride IV 01/27/21 16:15 ONCE ONE Meropenem 1 gm/ Sodium 100 mls @ 100 mls/hr 01/27/21 15:38 Chloride IV 01/27/21 16:37 ONCE ONE Potassium Chloride/Sodium Chloride 20 meq in 1,000 mls @ 125 mls/hr 01/27/21 15:45 IVCONT .Q8H [facility] Pharmacy Consult 1 each 01/27/21 14:40 Consult Rx Perform Med Rec MISCELLANE ONCE PRN Consult order Pharmacy Consult 1 each 01/27/21 15:16 Consult Rx Vancomycin Dosing MISCELLANE DAILY PRN Consult order Home Medications Medication Instructions Recorded Confirmed Last Taken Type insulin aspart U-100 100 unit/mL See Rx Instructions .ROUTE .COMPLEX 01/10/21 01/27/21 Unknown History subcutaneous solution (Novolog U-100 Insulin aspart) insulin pump controller 01/10/21 01/27/21 Unknown History ergocalciferol (vitamin D2) 1,250 1,250 mcg PO QWEEK 01/27/21 01/27/21 Unknown History mcg (50,000 unit) capsule (Vitamin D2) methylphenidate HCl 20 mg biphasic 20 mg PO DAILY 01/27/21 01/27/21 Unknown History 50-50 capsule,extended release (Ritalin LA) Physical Exam Vital Signs: Vital Signs: Last Vital Signs Temp 98.0 F 01/27/21 11:16 Pulse 96 01/27/21 11:16 Resp 17 01/27/21 11:16 BP 88/46 L 01/27/21 11:16 Pulse Ox 100 01/27/21 11:16 Body Mass Index 20.8 Currently resting but was oriented x3 and nonfocal neurologically Skin otherwise intact outside of the area overlying the left MTP joint Chest clear with no adventitious sounds Cardiac exam with no neck vein distension and good bilateral carotid upstrokes and no gallops or rubs Abdomen benign no organomegaly nontender Results Labs CBC and Chem 7: 01/27/21 13:35 01/27/21 13:35 Labs: Laboratory Results - last 24 hr 01/27/21 01/27/21 01/27/21 13:18 13:34 13:35 MCV 83.3 MCH 27.1 MCHC 32.5 RDW 15.9 Plt Count 268 MPV 10.3 Immature Gran % (Auto) 0.8 H Neut % (Auto) 86.2 H Lymph % (Auto) 8.4 L [place] % (Auto) 4.3 Eos % (Auto) 0.1 Baso % (Auto) 0.2 Lymph # (Auto) 1.0 L [place] # (Auto) 0.5 Eos # (Auto) 0.0 Baso # (Auto) 0.0 Abs Immat Gran (auto) 0.09 H Absolute Neuts (auto) 9.9 H Absolute Nucleated RBC 0.000 Nucleated RBC % (auto) 0.0 Hold Purple Top PT INR Anion Gap Estim Creat Clear Calc Estimated GFR POC Glucose 487 H* Random Glucose Lactic Acid 1.9 Calcium Magnesium Total Bilirubin AST ALT Alkaline Phosphatase Total Protein Albumin Beta HCG, Quant Acetone, Qual Coronavirus (PCR) Influenza Type A (PCR) Influenza Type B (PCR) RSV RNA Qual (PCR) 01/27/21 01/27/21 01/27/21 13:35 13:35 13:35 MCV MCH MCHC RDW Plt Count MPV Immature Gran % (Auto) Neut % (Auto) Lymph % (Auto) [place] % (Auto) Eos % (Auto) Baso % (Auto) Lymph # (Auto) [place] # (Auto) Eos # (Auto) Baso # (Auto) Abs Immat Gran (auto) Absolute Neuts (auto) Absolute Nucleated RBC Nucleated RBC % (auto) Hold Purple Top SEE NOTE PT 11.8 INR 1.0 Anion Gap 29 H Estim Creat Clear Calc 51.3 Estimated GFR 55 POC Glucose Random Glucose 514 H* Lactic Acid Calcium 8.2 L Magnesium 2.0 Total Bilirubin 1.5 H AST 233 H ALT 289 H Alkaline Phosphatase 222 H D Total Protein 6.4 L Albumin 3.3 L Beta HCG, Quant < 2 Acetone, Qual Large H Coronavirus (PCR) Influenza Type A (PCR) Influenza Type B (PCR) RSV RNA Qual (PCR) 01/27/21 13:37 MCV MCH MCHC RDW Plt Count MPV Immature Gran % (Auto) Neut % (Auto) Lymph % (Auto) [place] % (Auto) Eos % (Auto) Baso % (Auto) Lymph # (Auto) [place] # (Auto) Eos # (Auto) Baso # (Auto) Abs Immat Gran (auto) Absolute Neuts (auto) Absolute Nucleated RBC Nucleated RBC % (auto) Hold Purple Top PT INR Anion Gap Estim Creat Clear Calc Estimated GFR POC Glucose Random Glucose Lactic Acid Calcium Magnesium Total Bilirubin AST ALT Alkaline Phosphatase Total Protein Albumin Beta HCG, Quant Acetone, Qual Coronavirus (PCR) NEGATIVE Influenza Type A (PCR) NEGATIVE Influenza Type B (PCR) NEGATIVE RSV RNA Qual (PCR) NEGATIVE Assessment and Plan (1) DKA (diabetic ketoacidosis): Status: Acute (2) Acute hyperglycemia: Status: Acute (3) Abscess of foot: Status: Acute (4) IV drug abuse: Status: Acute (5) Diabetic foot infection: Status: Acute (6) Cellulitis: Status: Acute Continue IV normal saline with empiric potassium replacement along with IV insulin drip until serum bicarb normalizes and will initiate diet now and will use p.r.n. benzodiazepines hopefully to prevent withdrawal issues other possibilities to help prevent withdrawal problems could could be drug such as dexmedetomidine
[2021-01-27 16:12] LABS: Glucose, Whole Blood 303 mg/dL (60-115)
[2021-01-27 16:26] LABS: Glucose, Whole Blood 219 mg/dL (60-115)
[2021-01-27] MEDS: vancomycin HCL 1,000 MG in 0.9 % Sodium Chloride 250 ML 270 MG IV (16:42)
--- NOTE | 2021-01-27 16:50 | PC.NURSE ---
kcl not available in ed, will call to obtain some
--- NOTE | 2021-01-27 16:57 | PC.NURSE ---
second iv site started, all ivf running per order, engine monitor sinus wojciech 60s, vitals otherwise stable wll continue to monitor.
--- NOTE | 2021-01-27 17:00 | PC.NURSE ---
pt sleeping, woke to stimulus, obtained vitals, athletic monitor sinus wojciech to nsr, will continue to monitor.
--- NOTE | 2021-01-27 17:09 | PC.NURSE ---
rn to call ed back to obtain report
[2021-01-27 17:37] LABS: Glucose, Whole Blood 161 mg/dL (60-115)
[2021-01-27] MEDS: Insulin Regular/NS 100 UNIT/100 ML PLAST..BAG IVCONT (17:54)
[2021-01-27 18:29] LABS: Glucose Urine UA >=1000 MG/DL (NEG); Leukocyte Esterase Urine NEG (NEG); Nitrite Urine NEG (NEG); Urine Blood NEG (NEG); Urine Ketones >=80 MG/DL (NEG); Urine Protein NEG (NEG-TRACE)
[2021-01-27 18:30] LABS: Appearance Urine CLEAR; Color Urine STRAW
[2021-01-27 18:31] LABS: Glucose, Whole Blood 89 mg/dL (60-115)
[2021-01-27 18:44] LABS: RBC Urine 0 /HPF (0); Squamous Epithelial Cell Urine TRACE /LPF; WBC Urine 0-2 /HPF (0-4)
[2021-01-27 18:51] LABS: Amphetamine Screen Urine Not Detected (Not Detect); Barbiturates, Urine Not Detected (Not Detect); Benzodiazepines Screen Urine Not Detected (Not Detect); Cannabinoid Screen Urine Not Detected (Not Detect); Cocaine Screen Urine POSITIVE (Not Detect); Fentanyl, urine POSITIVE (Not Detect); Opiate Screen Urine POSITIVE (Not Detect); Phencyclidine Screen Urine Not Detected (Not Detect)
[2021-01-27 19:21] LABS: Glucose, Whole Blood 34 mg/dL (60-115)
[2021-01-27] MEDS: Dextrose 5 % and Lactated Ring 1,000 ML 125 ML IVCONT (19:28)
[2021-01-27 19:38] LABS: Glucose, Whole Blood 141 mg/dL (60-115)
[2021-01-27 19:39] LABS: VBG Base Excess -3.2 mmol/L; VBG HCO3 20 mmol/L (22-26); VBG pCO2 32 mmHg; VBG pO2 38 mmHg
[2021-01-27 20:09] LABS: Glucose, Whole Blood 138 mg/dL (60-115)
[2021-01-27 20:23] LABS: Anion Gap 11 (12-20); Blood Urea Nitrogen 10 mg/dL (9-16); Calcium 7.4 mg/dL (8.4-10.2); Carbon Dioxide 24 mmol/L (22-29); Chloride 104 mmol/L (96-108); Estimated Glomerular Filt Rate > 60; Glucose Random 155 mg/dL (60-115); Potassium 3.9 mmol/L (3.3-5.1); Sodium 135 mmol/L (135-145)
[2021-01-27 20:24] LABS: Acetaminophen LAB 7 mcg/mL (<30); Salicylate < 5.0 mg/dL (15-30)
--- NOTE | 2021-01-27 20:30 | PC.NURSE ---
Addendum entered by Silvia Jha RN 01/27/21 21:47: Belongings have been placed in decon. Original Note: Refuses physical assessment, including skin assessment. Patient refuses to provide any assessment data. Pretends to be unresponsive when questioned. Rouses easily with tactile stimuli. Patient unable to verify home insulin dose. Gave PA permission to look at insulin pump in personal belongings. Drug paraphernalia found in bag. Security called to come retrieve belongings..
[2021-01-27 21:10] LABS: Glucose, Whole Blood 128 mg/dL (60-115)
[2021-01-27] MEDS: Insulin Glargine,Hum.rec.anlog 100 UNIT/ML 10 ML VIAL 15 UNIT SUBCUT (21:14)
[2021-01-27 21:49] LABS: Venous Blood Gas Refer to POC result
[2021-01-27 22:01] LABS: Glucose, Whole Blood 168 mg/dL (60-115)
[2021-01-28] VITALS (7 sets, daily range): BP systolic 102–122; BP diastolic 60–76; PULSE 59–76; RESP 18–20; TEMP 35.8–37.1; O2SAT 95–99; BMI 22.8
[2021-01-28 00:40] LABS: Glucose, Whole Blood 206 mg/dL (60-115)
[2021-01-28 04:09] LABS: MANUAL DIFF FLAG NO
[2021-01-28] MEDS: Dextrose 5 % and Lactated Ring 1,000 ML 125 ML IVCONT (04:09)
[2021-01-28 04:16] LABS: Basophils Percent Auto 0.4 % (0-2); Eosinophils Absolute Auto 0.1 X10*3/uL (0.0-0.4); Eosinophils Percent Auto 0.9 % (0-4); Hematocrit 32.2 % (37-47); Imm Gran Abs Auto 0.03 X10*3/uL (0.00-0.03); Imm Gran Pct Auto 0.4 % (0.0-0.4); Lymphocytes Absolute Auto 1.4 X10*3/uL (1.2-4.9); Mean Corpuscular HGB Conc 34.2 g/dl (31.0-35.0); Mean Corpuscular Hemoglobin 27.4 pg (27.0-33.0); Mean Corpuscular Volume 80.3 fL (80-98); Mean Platelet Volume 10.5 fL (9.4-12.3); Monocytes Absolute Auto 0.6 X10*3/uL (0.1-1.2); Monocytes Percent Auto 7.3 % (2-11); Neutrophils Absolute Auto 5.9 X10*3/uL (2.0-8.3); Platelet Count 272 X10*3/uL (160-400); Red Blood Count 4.01 X10*6/uL (4.20-5.50); Red Cell Distribution Width 15.5 % (11.0-16.0)
[2021-01-28 04:23] LABS: Venous Blood Gas Refer to POC result
[2021-01-28 04:24] LABS: VBG Base Excess 0.6 mmol/L; VBG HCO3 24 mmol/L (22-26); VBG pCO2 35 mmHg; VBG pH 7.44 (7.32-7.43); VBG pO2 85 mmHg
[2021-01-28 04:26] LABS: INTERNATIONAL NORM RATIO 1.1 (0.9-1.1); Prothrombin Time 12.3 SEC (9.9-13.0)
[2021-01-28 04:29] LABS: Partial Thromboplastin Time 28.2 SEC (24.1-38.0)
[2021-01-28] MEDS: vancomycin HCL 500 MG in 0.9 % Sodium Chloride 100 ML 110 MG IV (04:45)
[2021-01-28 04:59] LABS: Anion Gap 13 (12-20); Blood Urea Nitrogen 12 mg/dL (9-16); Calcium 7.4 mg/dL (8.4-10.2); Carbon Dioxide 22 mmol/L (22-29); Chloride 104 mmol/L (96-108); Creatinine Clr Calc Pharmacy 69.4; Estimated Glomerular Filt Rate > 60; Glucose Random 401 mg/dL (60-115); Magnesium 1.8 mg/dL (1.6-2.6); Phosphorus 2.6 mg/dL (2.7-4.5); Sodium 135 mmol/L (135-145)
[2021-01-28 05:24] LABS: Glucose, Whole Blood 431 mg/dL (60-115)
[2021-01-28] MEDS: Insulin Lispro 100 UNIT/ML 3 ML VIAL 10 UNIT SUBCUT (05:43)
--- NOTE | 2021-01-28 07:15 | PC.NURSE ---
0450; This Rn was contacted via [employer] by lab with a critical random glucose of 401. Dr Alcides Rao notified via [employer], nursing cloth shrinking supervisor notified. Assessed pt, patient alert, awake, reports just feeling tired, ambulated to bathroom with 1 assist. This Rn rechecked poc, 431. Hospitalist made aware of elevated blood sugar. Stat order for 10 units humalog. Patient was also on [id number]@125, verified with hospitalist and iv fluids paused/stopped per hospitalist. Day shift Rn updated.
[2021-01-28 07:45] LABS: Glucose, Whole Blood 286 mg/dL (60-115)
[2021-01-28 07:46] LABS: Glucose, Whole Blood 538 mg/dL (60-115)
[2021-01-28] MEDS: Insulin Lispro 100 UNIT/ML 3 ML VIAL SUBCUT ×3 (08:00→20:56)
--- NOTE | 2021-01-28 10:28 | MHC.RECOVRN ---
T/w attempted to meet with pt in 478 after it was noted patient has an OUD. Pt resting, opened eyes when t/w said pts name. Pt closed eyes after t/w introduced self. When asked about withdrawal symptoms, pt stated I'm good. Pt did not answer any other questions or want to continue conversation. T/w encouraged pt to notify RN if withdrawal symptoms occur.
[2021-01-28 11:17] LABS: Glucose, Whole Blood 92 mg/dL (60-115)
--- NOTE | 2021-01-28 11:42 | HO.PM.IMPN ---
Subjective Subjective Date of Service: 01/28/21 Interval History: seen and examined this AM not talking much Review of Systems not talking much Physical Exam Vital Signs: Vital Signs: Last Vital Signs Temp 97.7 F 01/28/21 08:00 Pulse 76 01/28/21 08:00 Resp 18 01/28/21 08:00 BP 110/66 01/28/21 08:00 Pulse Ox 97 01/28/21 08:00 Body Mass Index 22.8 Const: Other: General - no acute distress, appears comfortable Cardiovascular - regular rate and rhythm, S1-S2 Lungs - normal respiratory effort, clear to auscultation bilaterally, no wheezing Abdomen - soft, nontender, no rebound or guarding Extremities - no edema bilaterally Neuro - awake and alert, no focal deficits Skin - healed I&D on L foot Objective Data Current Medications Generic Name Dose Route Start Last Admin Trade Name Freq PRN Reason Stop Dose Admin Dextrose 25 gm 01/27/21 19:17 01/27/21 19:28 Dextrose 50 % 25 Gm/50 Ml Vial IVPUSH 25 gm Q15M PRN Administration per Hypoglycemia Standing Ord. Vancomycin HCl 750 mg/ Sodium 115 mls @ 110 mls/hr 01/28/21 17:00 Chloride IV Q12H HÉCTOR Insulin Glargine 15 unit 01/27/21 21:00 01/27/21 21:14 Insulin Glargine,Hum.Rec.Anlog 100 Unit/Ml 10 Ml Vial SUBCUT 15 unit BEDTIME HÉCTOR Administration Insulin Human Lispro 0 unit 01/27/21 21:00 01/28/21 08:00 Insulin Lispro 100 Unit/Ml 3 Ml Vial SUBCUT 6 unit QIDACHS HÉCTOR Administration Protocol Lorazepam 0.5 mg 01/27/21 17:42 Lorazepam 2 Mg/Ml Vial IVPUSH Q4H PRN anxiety/restlessness Pharmacy Consult 1 each 01/27/21 14:40 Consult Rx Perform Med Rec MISCELLANE ONCE PRN Consult order Pharmacy Consult 1 each 01/27/21 15:16 Consult Rx Vancomycin Dosing MISCELLANE DAILY PRN Consult order Labs CBC & Chem 7: 01/28/21 04:02 01/28/21 04:02 Labs: Laboratory Results - last 24 hr 01/27/21 01/27/21 01/27/21 11:10 13:18 13:34 MCV MCH MCHC RDW Plt Count MPV Immature Gran % (Auto) Neut % (Auto) Lymph % (Auto) [place] % (Auto) Eos % (Auto) Baso % (Auto) Lymph # (Auto) [place] # (Auto) Eos # (Auto) Baso # (Auto) Abs Immat Gran (auto) Absolute Neuts (auto) Absolute Nucleated RBC Nucleated RBC % (auto) Hold Purple Top PT INR APTT VBG pH VBG pCO2 VBG pO2 VBG HCO3 VBG O2 Saturation VBG Base Excess Anion Gap Estim Creat Clear Calc Estimated GFR POC Glucose 538 H* 487 H* Random Glucose Lactic Acid 1.9 Calcium Phosphorus Magnesium Total Bilirubin AST ALT Alkaline Phosphatase Total Protein Albumin Beta HCG, Quant Urine Color Urine Appearance Urine pH Ur Specific [place] Urine Protein Urine Glucose (UA) Urine Ketones Urine Blood Urine Nitrite Ur Leukocyte Esterase Urine RBC Urine WBC Ur Squamous Epith Cells Urine Bacteria Urine Yeast Salicylates Urine Opiates Screen Urine Fentanyl Screen Acetaminophen Ur Barbiturates Screen Ur Phencyclidine Scrn Ur Amphetamines Screen U Benzodiazepines Scrn Urine Cocaine Screen U Marijuana (THC) Screen Acetone, Qual Coronavirus (PCR) Influenza Type A (PCR) Influenza Type B (PCR) RSV RNA Qual (PCR) 01/27/21 01/27/21 01/27/21 13:35 13:35 13:35 MCV 83.3 MCH 27.1 MCHC 32.5 RDW 15.9 Plt Count 268 MPV 10.3 Immature Gran % (Auto) 0.8 H Neut % (Auto) 86.2 H Lymph % (Auto) 8.4 L [place] % (Auto) 4.3 Eos % (Auto) 0.1 Baso % (Auto) 0.2 Lymph # (Auto) 1.0 L [place] # (Auto) 0.5 Eos # (Auto) 0.0 Baso # (Auto) 0.0 Abs Immat Gran (auto) 0.09 H Absolute Neuts (auto) 9.9 H Absolute Nucleated RBC 0.000 Nucleated RBC % (auto) 0.0 Hold Purple Top SEE NOTE PT 11.8 INR 1.0 APTT VBG pH VBG pCO2 VBG pO2 VBG HCO3 VBG O2 Saturation VBG Base Excess Anion Gap Estim Creat Clear Calc Estimated GFR POC Glucose Random Glucose Lactic Acid Calcium Phosphorus Magnesium Total Bilirubin AST ALT Alkaline Phosphatase Total Protein Albumin Beta HCG, Quant Urine Color Urine Appearance Urine pH Ur Specific [place] Urine Protein Urine Glucose (UA) Urine Ketones Urine Blood Urine Nitrite Ur Leukocyte Esterase Urine RBC Urine WBC Ur Squamous Epith Cells Urine Bacteria Urine Yeast Salicylates Urine Opiates Screen Urine Fentanyl Screen Acetaminophen Ur Barbiturates Screen Ur Phencyclidine Scrn Ur Amphetamines Screen U Benzodiazepines Scrn Urine Cocaine Screen U Marijuana (THC) Screen Acetone, Qual Coronavirus (PCR) Influenza Type A (PCR) Influenza Type B (PCR) RSV RNA Qual (PCR) 01/27/21 01/27/21 01/27/21 13:35 13:37 15:10 MCV MCH MCHC RDW Plt Count MPV Immature Gran % (Auto) Neut % (Auto) Lymph % (Auto) [place] % (Auto) Eos % (Auto) Baso % (Auto) Lymph # (Auto) [place] # (Auto) Eos # (Auto) Baso # (Auto) Abs Immat Gran (auto) Absolute Neuts (auto) Absolute Nucleated RBC Nucleated RBC % (auto) Hold Purple Top PT INR APTT VBG pH VBG pCO2 VBG pO2 VBG HCO3 VBG O2 Saturation VBG Base Excess Anion Gap 29 H Estim Creat Clear Calc 51.3 Estimated GFR 55 POC Glucose 303 H Random Glucose 514 H* Lactic Acid Calcium 8.2 L Phosphorus Magnesium 2.0 Total Bilirubin 1.5 H AST 233 H ALT 289 H Alkaline Phosphatase 222 H D Total Protein 6.4 L Albumin 3.3 L Beta HCG, Quant < 2 Urine Color Urine Appearance Urine pH Ur Specific [place] Urine Protein Urine Glucose (UA) Urine Ketones Urine Blood Urine Nitrite Ur Leukocyte Esterase Urine RBC Urine WBC Ur Squamous Epith Cells Urine Bacteria Urine Yeast Salicylates Urine Opiates Screen Urine Fentanyl Screen Acetaminophen Ur Barbiturates Screen Ur Phencyclidine Scrn Ur Amphetamines Screen U Benzodiazepines Scrn Urine Cocaine Screen U Marijuana (THC) Screen Acetone, Qual Large H Coronavirus (PCR) NEGATIVE Influenza Type A (PCR) NEGATIVE Influenza Type B (PCR) NEGATIVE RSV RNA Qual (PCR) NEGATIVE 01/27/21 01/27/21 01/27/21 16:22 17:33 18:14 MCV MCH MCHC RDW Plt Count MPV Immature Gran % (Auto) Neut % (Auto) Lymph % (Auto) [place] % (Auto) Eos % (Auto) Baso % (Auto) Lymph # (Auto) [place] # (Auto) Eos # (Auto) Baso # (Auto) Abs Immat Gran (auto) Absolute Neuts (auto) Absolute Nucleated RBC Nucleated RBC % (auto) Hold Purple Top PT INR APTT VBG pH VBG pCO2 VBG pO2 VBG HCO3 VBG O2 Saturation VBG Base Excess Anion Gap Estim Creat Clear Calc Estimated GFR POC Glucose 219 H 161 H Random Glucose Lactic Acid Calcium Phosphorus Magnesium Total Bilirubin AST ALT Alkaline Phosphatase Total Protein Albumin Beta HCG, Quant Urine Color STRAW Urine Appearance CLEAR Urine pH 6.0 Ur Specific [place] 1.020 Urine Protein NEG Urine Glucose (UA) >=1000 H Urine Ketones >=80 Urine Blood NEG Urine Nitrite NEG Ur Leukocyte Esterase NEG Urine RBC 0 Urine WBC 0-2 Ur Squamous Epith Cells TRACE Urine Bacteria NONE Urine Yeast TRACE Salicylates Urine Opiates Screen Urine Fentanyl Screen Acetaminophen Ur Barbiturates Screen Ur Phencyclidine Scrn Ur Amphetamines Screen U Benzodiazepines Scrn Urine Cocaine Screen U Marijuana (THC) Screen Acetone, Qual Coronavirus (PCR) Influenza Type A (PCR) Influenza Type B (PCR) RSV RNA Qual (PCR) 01/27/21 01/27/21 01/27/21 18:14 18:28 19:17 MCV MCH MCHC RDW Plt Count MPV Immature Gran % (Auto) Neut % (Auto) Lymph % (Auto) [place] % (Auto) Eos % (Auto) Baso % (Auto) Lymph # (Auto) [place] # (Auto) Eos # (Auto) Baso # (Auto) Abs Immat Gran (auto) Absolute Neuts (auto) Absolute Nucleated RBC Nucleated RBC % (auto) Hold Purple Top PT INR APTT VBG pH VBG pCO2 VBG pO2 VBG HCO3 VBG O2 Saturation VBG Base Excess Anion Gap Estim Creat Clear Calc Estimated GFR POC Glucose 89 34 L* Random Glucose Lactic Acid Calcium Phosphorus Magnesium Total Bilirubin AST ALT Alkaline Phosphatase Total Protein Albumin Beta HCG, Quant Urine Color Urine Appearance Urine pH Ur Specific [place] Urine Protein Urine Glucose (UA) Urine Ketones Urine Blood Urine Nitrite Ur Leukocyte Esterase Urine RBC Urine WBC Ur Squamous Epith Cells Urine Bacteria Urine Yeast Salicylates Urine Opiates Screen POSITIVE H Urine Fentanyl Screen POSITIVE H Acetaminophen Ur Barbiturates Screen Not Detected Ur Phencyclidine Scrn Not Detected Ur Amphetamines Screen Not Detected U Benzodiazepines Scrn Not Detected Urine Cocaine Screen POSITIVE H U Marijuana (THC) Screen Not Detected Acetone, Qual Coronavirus (PCR) Influenza Type A (PCR) Influenza Type B (PCR) RSV RNA Qual (PCR) 01/27/21 01/27/21 01/27/21 19:31 19:33 19:33 MCV MCH MCHC RDW Plt Count MPV Immature Gran % (Auto) Neut % (Auto) Lymph % (Auto) [place] % (Auto) Eos % (Auto) Baso % (Auto) Lymph # (Auto) [place] # (Auto) Eos # (Auto) Baso # (Auto) Abs Immat Gran (auto) Absolute Neuts (auto) Absolute Nucleated RBC Nucleated RBC % (auto) Hold Purple Top PT INR APTT VBG pH 7.40 VBG pCO2 32 VBG pO2 38 VBG HCO3 20 L VBG O2 Saturation 65.0 VBG Base Excess -3.2 Anion Gap 11 L Estim Creat Clear Calc 74.0 Estimated GFR > 60 POC Glucose Random Glucose 155 H D Lactic Acid Calcium 7.4 L D Phosphorus Magnesium Total Bilirubin AST ALT Alkaline Phosphatase Total Protein Albumin Beta HCG, Quant Urine Color Urine Appearance Urine pH Ur Specific [place] Urine Protein Urine Glucose (UA) Urine Ketones Urine Blood Urine Nitrite Ur Leukocyte Esterase Urine RBC Urine WBC Ur Squamous Epith Cells Urine Bacteria Urine Yeast Salicylates < 5.0 L Urine Opiates Screen Urine Fentanyl Screen Acetaminophen 7 Ur Barbiturates Screen Ur Phencyclidine Scrn Ur Amphetamines Screen U Benzodiazepines Scrn Urine Cocaine Screen U Marijuana (THC) Screen Acetone, Qual Coronavirus (PCR) Influenza Type A (PCR) Influenza Type B (PCR) RSV RNA Qual (PCR) 01/27/21 01/27/21 01/27/21 19:35 20:06 21:06 MCV MCH MCHC RDW Plt Count MPV Immature Gran % (Auto) Neut % (Auto) Lymph % (Auto) [place] % (Auto) Eos % (Auto) Baso % (Auto) Lymph # (Auto) [place] # (Auto) Eos # (Auto) Baso # (Auto) Abs Immat Gran (auto) Absolute Neuts (auto) Absolute Nucleated RBC Nucleated RBC % (auto) Hold Purple Top PT INR APTT VBG pH VBG pCO2 VBG pO2 VBG HCO3 VBG O2 Saturation VBG Base Excess Anion Gap Estim Creat Clear Calc Estimated GFR POC Glucose 141 H 138 H 128 H Random Glucose Lactic Acid Calcium Phosphorus Magnesium Total Bilirubin AST ALT Alkaline Phosphatase Total Protein Albumin Beta HCG, Quant Urine Color Urine Appearance Urine pH Ur Specific [place] Urine Protein Urine Glucose (UA) Urine Ketones Urine Blood Urine Nitrite Ur Leukocyte Esterase Urine RBC Urine WBC Ur Squamous Epith Cells Urine Bacteria Urine Yeast Salicylates Urine Opiates Screen Urine Fentanyl Screen Acetaminophen Ur Barbiturates Screen Ur Phencyclidine Scrn Ur Amphetamines Screen U Benzodiazepines Scrn Urine Cocaine Screen U Marijuana (THC) Screen Acetone, Qual Coronavirus (PCR) Influenza Type A (PCR) Influenza Type B (PCR) RSV RNA Qual (PCR) 01/27/21 01/28/21 01/28/21 21:56 00:34 04:02 MCV 80.3 MCH 27.4 MCHC 34.2 RDW 15.5 Plt Count 272 MPV 10.5 Immature Gran % (Auto) 0.4 Neut % (Auto) 74.0 H Lymph % (Auto) 17.0 L [place] % (Auto) 7.3 Eos % (Auto) 0.9 Baso % (Auto) 0.4 Lymph # (Auto) 1.4 [place] # (Auto) 0.6 Eos # (Auto) 0.1 Baso # (Auto) 0.0 Abs Immat Gran (auto) 0.03 Absolute Neuts (auto) 5.9 Absolute Nucleated RBC 0.000 Nucleated RBC % (auto) 0.0 Hold Purple Top PT INR APTT VBG pH VBG pCO2 VBG pO2 VBG HCO3 VBG O2 Saturation VBG Base Excess Anion Gap Estim Creat Clear Calc Estimated GFR POC Glucose 168 H 206 H Random Glucose Lactic Acid Calcium Phosphorus Magnesium Total Bilirubin AST ALT Alkaline Phosphatase Total Protein Albumin Beta HCG, Quant Urine Color Urine Appearance Urine pH Ur Specific [place] Urine Protein Urine Glucose (UA) Urine Ketones Urine Blood Urine Nitrite Ur Leukocyte Esterase Urine RBC Urine WBC Ur Squamous Epith Cells Urine Bacteria Urine Yeast Salicylates Urine Opiates Screen Urine Fentanyl Screen Acetaminophen Ur Barbiturates Screen Ur Phencyclidine Scrn Ur Amphetamines Screen U Benzodiazepines Scrn Urine Cocaine Screen U Marijuana (THC) Screen Acetone, Qual Coronavirus (PCR) Influenza Type A (PCR) Influenza Type B (PCR) RSV RNA Qual (PCR) 01/28/21 01/28/21 01/28/21 04:02 04:02 04:08 MCV MCH MCHC RDW Plt Count MPV Immature Gran % (Auto) Neut % (Auto) Lymph % (Auto) [place] % (Auto) Eos % (Auto) Baso % (Auto) Lymph # (Auto) [place] # (Auto) Eos # (Auto) Baso # (Auto) Abs Immat Gran (auto) Absolute Neuts (auto) Absolute Nucleated RBC Nucleated RBC % (auto) Hold Purple Top PT 12.3 INR 1.1 APTT 28.2 VBG pH 7.44 H VBG pCO2 35 VBG pO2 85 VBG HCO3 24 VBG O2 Saturation 97.0 VBG Base Excess 0.6 Anion Gap 13 Estim Creat Clear Calc 69.4 Estimated GFR > 60 POC Glucose Random Glucose 401 H* Lactic Acid Calcium 7.4 L Phosphorus 2.6 L Magnesium 1.8 Total Bilirubin AST ALT Alkaline Phosphatase Total Protein Albumin Beta HCG, Quant Urine Color Urine Appearance Urine pH Ur Specific [place] Urine Protein Urine Glucose (UA) Urine Ketones Urine Blood Urine Nitrite Ur Leukocyte Esterase Urine RBC Urine WBC Ur Squamous Epith Cells Urine Bacteria Urine Yeast Salicylates Urine Opiates Screen Urine Fentanyl Screen Acetaminophen Ur Barbiturates Screen Ur Phencyclidine Scrn Ur Amphetamines Screen U Benzodiazepines Scrn Urine Cocaine Screen U Marijuana (THC) Screen Acetone, Qual Coronavirus (PCR) Influenza Type A (PCR) Influenza Type B (PCR) RSV RNA Qual (PCR) 01/28/21 01/28/21 01/28/21 05:20 07:22 11:02 MCV MCH MCHC RDW Plt Count MPV Immature Gran % (Auto) Neut % (Auto) Lymph % (Auto) [place] % (Auto) Eos % (Auto) Baso % (Auto) Lymph # (Auto) [place] # (Auto) Eos # (Auto) Baso # (Auto) Abs Immat Gran (auto) Absolute Neuts (auto) Absolute Nucleated RBC Nucleated RBC % (auto) Hold Purple Top PT INR APTT VBG pH VBG pCO2 VBG pO2 VBG HCO3 VBG O2 Saturation VBG Base Excess Anion Gap Estim Creat Clear Calc Estimated GFR POC Glucose 431 H* 286 H 92 Random Glucose Lactic Acid Calcium Phosphorus Magnesium Total Bilirubin AST ALT Alkaline Phosphatase Total Protein Albumin Beta HCG, Quant Urine Color Urine Appearance Urine pH Ur Specific [place] Urine Protein Urine Glucose (UA) Urine Ketones Urine Blood Urine Nitrite Ur Leukocyte Esterase Urine RBC Urine WBC Ur Squamous Epith Cells Urine Bacteria Urine Yeast Salicylates Urine Opiates Screen Urine Fentanyl Screen Acetaminophen Ur Barbiturates Screen Ur Phencyclidine Scrn Ur Amphetamines Screen U Benzodiazepines Scrn Urine Cocaine Screen U Marijuana (THC) Screen Acetone, Qual Coronavirus (PCR) Influenza Type A (PCR) Influenza Type B (PCR) RSV RNA Qual (PCR) Assessment and Plan (1) DKA (diabetic ketoacidosis): Status: Acute Assessment and Plan: This is a 40 yo IDDM who was admitted to the ICU for DKA. 1. DKA now resolved due to non-compliance uses insulin pump, but ran out of her meds reportedly continue basal + bolus she will need to f/u with her process planner 2. Prior diabetic foot infection MRI last admission showed no osteo currently looks significantly improved will start with a foot xr and proceed do no feel she needs iv antibiotics at this time -- will d/c vancocmyin 3. Polysubstance abuse care team Full Code DVT pptx, lovenox Quality Stroke Does the patient have a stroke diagnosis?: No VTE Prior VTE?: No VTE Risk Level:: Medical - low VTE Device Contraindication: Treatment Not Indicated VTE Drug Contraindication: Treatment Not Indicated
--- NOTE | 2021-01-28 14:43 | MHC.CM.PN ---
IMM 01/28/21 Female 40 DX DKA. Recent hospitalization within 30 days. 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 She did not keep scheduled MD appointment. T/W stated purpose of CM assessment is to plan discharge according to Pts needs. She states that she is homeless. She denied living in a retirement and couch surfing. She stated that the only thing that she needs for discharge is her insulin prescriptions. CM will follow.
[2021-01-28 16:16] LABS: Glucose, Whole Blood 299 mg/dL (60-115)
--- NOTE | 2021-01-28 17:10 | P.EN_ITS ---
Event Note Date of Service: 01/28/21 Event Note: Called by RN to report that patient wanted to leave against medical advice. Patient seen. Asked her why she wanted to leave to which she answered -- I just want to get out of here Despite explaining to her that she was just treated for DKA in the ICU, a life threatening condition -- she did not want to leave. I offered her treatment for her chronic opiate use including suboxone / methadone / couseling. She stated that she was not in withdrawal and not interes ervin in myself. Her only request was for me to send a script for Levemir (12 units) and Novolog (sliding scale) to [facility] pharmacy on [facility]. I reiterated that she should stay in the hospital to receive care, but when I left the room -- her decision was made to leave AMA. After I sent her scripts to the pharmacy, the RN called back and stated that the patient decided to stay in the hospital until tomorrow.
--- NOTE | 2021-01-28 19:25 | PC.NURSE ---
Patient refused care team consult this AM. Patient initially refused x ray of her left foot, but this RN spoke to patient and convinced her to undergo x ray. Patient refused lovenox. Patient very angry, wanting her belongings with her. Nursing glycerin supervisor to bedside to explain that she could not have her belongings due to illicit substances being found. Patient upset, stating she wants to leave. Hospitalist notified. Upon bringing AMA form to patient, patient states that she did not say that she wants to leave and that she will stay until 9 tomorrow morning and I better have my stuff then and that if she leaves without insulin script, that she will . No further issues, will pass to oncoming RN.
[2021-01-28 20:21] LABS: Glucose, Whole Blood 402 mg/dL (60-115)
[2021-01-28] MEDS: Insulin Glargine,Hum.rec.anlog 100 UNIT/ML 10 ML VIAL 15 UNIT SUBCUT (20:56)
[2021-01-29 07:21] LABS: Glucose, Whole Blood 265 mg/dL (60-115)
[2021-01-29 07:49] VITALS: BP 130/78; PULSE 59; RESP 18; TEMP 36.1; O2SAT 100
[2021-01-29] MEDS: Insulin Lispro 100 UNIT/ML 3 ML VIAL SUBCUT (09:07)
[2021-01-29 10:40] LABS: Anion Gap 12 (12-20); Blood Urea Nitrogen 7 mg/dL (9-16); Calcium 8.1 mg/dL (8.4-10.2); Carbon Dioxide 28 mmol/L (22-29); Chloride 98 mmol/L (96-108); Creatinine Clr Calc Pharmacy 83.8; Estimated Glomerular Filt Rate > 60; Glucose Random 344 mg/dL (60-115); Phosphorus 1.9 mg/dL (2.7-4.5); Potassium 3.3 mmol/L (3.3-5.1); Sodium 135 mmol/L (135-145)
--- NOTE | 2021-01-29 11:28 | MHC.CM.PN ---
CM INFORMED THIS PT SIGNING OUT AMA BUT IN NEED OF ASSISTANCE. PT REPORTED SHE NEEDED BUS PASSES AND A SHIRT. CM PROVIDED A T-SHIRT FROM THE [facility] TWO BUS PASSES. PT CAME INTO THE [facility] MULTIPLE TIMES WHILE CM WAS SPEAKING WITH RN. PT STATING IS SOMEONE GOING TO TAKE ME TO [facility]? . CM INFORMED PT STAFF WAS BUSY HOWEVER IF SHE FELT ANXIOUS TO LEAVE CM WOULD WALK HER TO [facility] OFFICE WHERE HER BELONGINGS WERE IN STORAGE. DURING WALK PT REPORTED SHE DID NOT FEEL SHE WAS GETTING ENOUGH INSULIN WHILE INPT HOWEVER ALSO ADMITTED SHE DID NOT HAVE MEDS AT HOME. SHE THEN STATED IT WAS TAKING MORE THAN TWO TO THREE MINUTES FOR HER CALL P[facility]NY TO BE ANSWERED AND SHE FELT UNSAFE CM REMINDED PT THE NURSES WERE VERY BUSY AND THAT SHE SHORT WAIT IS TO BE EXPECTED. PT STATED SHE FELT WEAK, CM ASKED HOW SHE PLANNED TO WALK ONCE OUT OF THE HOSPITAL, PT STATING SHE IS OK . S.O. LOCATED PTS BELONGINGS AND INSTRUCTED HER TO GO TO THE DECONTAMINATION ROOM TO CHANGE SHE ADMITTED THERE WAS HEROIN IN WITH HER ITEMS. CM VERIFIED PT HAD HER BUS PASSES AND LEFT HER WITH SECURITY.
--- NOTE | 2021-01-29 14:06 | P.DS_ITS ---
DS: Providers Provider Date of Service: 01/29/21 Date of admission: 01/27/21 16:01 Date of discharge: 01/29/21 Primary care physician: Tena Daniel NP Admitting clinician: Pato Brown Attending physician on admission: Pato Brown Consults: 01/27/21 15:57 Consult to Infectious Diseases Routine Consulting Provider: Pato Brown Reason for consultation: MEROPENEM 01/28/21 12:38 Consult to Care Team Routine Comment: Reason for consultation: Polysubstance abuse, multiple readmissions Attending physician on discharge: Jonathan Gomez Discharging clinician: Gabi Ram DS: Diagnosis Discharge Diagnosis (1) DKA (diabetic ketoacidosis): Status: Acute DS: Medications Discharge Medications Home Medications: Home Medications Medication Instructions Recorded Confirmed insulin aspart U-100 100 unit/mL See Rx Instructions .ROUTE .COMPLEX 01/10/21 01/27/21 subcutaneous solution (Novolog U-100 Insulin aspart) insulin pump controller 01/10/21 01/27/21 ergocalciferol (vitamin D2) 1,250 1,250 mcg PO QWEEK 01/27/21 01/27/21 mcg (50,000 unit) capsule (Vitamin D2) methylphenidate HCl 20 mg biphasic 20 mg PO DAILY 01/27/21 01/27/21 50-50 capsule,extended release (Ritalin LA) Previous Rx's Medication Instructions Recorded blood-glucose meter (FreeStyle #1 ea 01/28/21 Lite Meter) pen needle, diabetic 31 gauge x #100 ea 01/28/2106/14 (Pen Needle) DS: Summary Hospital Course Hospital Course: 10-year-old female longstanding substance abuse IV drug abuser presented with the above complaint belligerent and noted that she had no insulin and the insulin pump for 3 days and was feeling weak and nauseous and vomiting need to be sedated to cooperate with small dose IV Ativan hydrated with 2 L of IV normal saline found to be in a positive anion gap metabolic acidosis with positive urine ketones and mild pseudo hyponatremia due to hyperglycemia with a glucose of over 500 and all consistent with diabetic ketoacidosis but we also noted that 2 weeks ago she presented with a left foot cellulitis and we now have what looks like puncture wounds on the plantar surface underlying the 1st MTP joint and the depth of the infection is difficult to gauge but clearly needs to be cultured and to cover with vancomycin and meropenem in light of penicillin and nonst eroidal anti-inflammatory allergies manifested by anaphylaxis. No other areas of vena puncture that appear to be infected no other areas of skin injection or between the toes she somewhat dirty and unkempt Patient was being treated for DKA and was due for labs however she declined and stated that she wanted to be discharged AMA. She is aware that by leaving and not completing the full workup her condition could worsen. She stated that she understood and wanted to leave AMA. Time Spent with Patient Time attestation: Total time spent providing and/or coordinating discharge services: Discharge coordination time: Less than 30 minutes Quality: Stroke Does the patient have a stroke diagnosis?: No Physical Exam Vital Signs: Vital Signs: Last Vital Signs Temp 97 F 01/29/21 07:49 Pulse 59 01/29/21 07:49 Resp 18 01/29/21 07:49 BP 130/78 01/29/21 07:49 Pulse Ox 100 01/29/21 07:49 Body Mass Index 22.8 LEFT AMA DS: Data Data Completed and Pending Completed studies during hospitalization [Text1]: Procedures Drainage of Left Foot Skin, External Approach (01/10/21) Labs on day of discharge: Laboratory Results - last 24 hr 01/28/21 01/28/21 01/29/21 15:48 20:15 07:15 Sodium Potassium Chloride Carbon Dioxide Anion Gap BUN Creatinine Estim Creat Clear Calc Estimated GFR POC Glucose 299 H 402 H* 265 H Random Glucose Calcium Phosphorus 01/29/21 09:44 Sodium 135 Potassium 3.3 Chloride 98 Carbon Dioxide 28 Anion Gap 12 BUN 7 L Creatinine 0.68 Estim Creat Clear Calc 83.8 Estimated GFR > 60 POC Glucose Random Glucose 344 H Calcium 8.1 L D Phosphorus 1.9 L Preliminary micro results at discharge 01/27/21 13:35 Blood Culture - Preliminary Blood - Venous No growth after 24 hours. 01/27/21 13:35 Blood Culture - Preliminary Blood - Venous No growth after 24 hours. Discharge Plan Discharge Anticipated Discharge Date/Time: 01/29/21 14:03 Patient Disposition: Left Against Medical Advice Discharge Diagnosis: DKA Diabetic foot infection Referrals: Tena Daniel NP [Primary Care Provider] - 1 Week Discharge Medications: New (DME) pen needle, diabetic [Pen Needle] 31 gauge x 1/4 needle See Rx Instructions .Route Qty: 100 RF: 0 (DME) blood-glucose meter [FreeStyle Lite Meter] Kit See Rx Instructions .Route Qty: 1 RF: 0 Levemir FlexTouch U-100 Insuln 100 unit/mL (3 mL) insulin pen 12 unit subcut BEDTIME Qty: 3 RF: 0 insulin aspart U-100 [Novolog Flexpen U-100 Insulin] 100 unit/mL (3 mL) insulin pen See Protocol unit subcut TID Qty: 3 RF: 0 Continued methylphenidate HCl [Ritalin LA] 20 mg Capsule,Er Biphasic 50-50 20 mg PO DAILY RF: 0 ergocalciferol (vitamin D2) [Vitamin D2] 1,250 mcg (50,000 unit) Capsule 1,250 mcg PO QWEEK RF: 0 insulin aspart U-100 [Novolog U-100 Insulin aspart] 100 unit/mL solution See Rx Instructions .ROUTE .COMPLEX RF: 0 (DME) insulin pump controller Misc MISCELLANEOUS RF: 0 Discharge Orders: Discharge Order (Routine); Ordered 01/29/21 Ordered By: Gabi Ram Diet: advance to usual diet Activity on Discharge: As tolerated Care Plan Goals: Left AMA Resolution of foot infection Health Concerns: DKA Diabetic foot infection Plan of Treatment: Left AMA Follow up with primary care provider as needed Assessment: See discharge summary Discharge Date/Time: 01/29/21 11:10
== END 2021-01-29 11:10 | disposition left against medical advice (07) | DRG 638 ==
LOC: HO.ED 15:05 → HO.ICU 16:42 → HO.IMC 23:22
PROVIDERS: Physician Assistant; Physician Assistant Medical; Admitting Provider Internal Medicine Cardiovascular Disease; Emergency Provider Internal Medicine; PCP Nurse Practitioner Adult Health; Visit Provider Family Medicine
DX: E11.10 Type 2 diabetes mellitus with ketoacidosis without coma (principal); L03.116 Cellulitis of left lower limb; F11.10 Opioid abuse, uncomplicated; E10.628 Type 1 diabetes mellitus with other skin complications; F17.210 Nicotine dependence, cigarettes, uncomplicated; Z71.6 Tobacco abuse counseling; Z20.822 Contact with and (suspected) exposure to COVID-19; Z96.41 Presence of insulin pump (external) (internal); Z88.0 Allergy status to penicillin; Z88.6 Allergy status to analgesic agent; Z79.4 Long term (current) use of insulin; Z79.899 Other long term (current) drug therapy
CPT/HCPCS: 0241U; 36415; 73620; 80048; 80053; 80143; 80179; 80307; 81001; 82009; 82803; 82947; 83605; 83735; 84100; 84702; 85025; 85610; 85730; 87040; 93005; 96361; 96365; 96367; 96375; 99284; 99285; 99291; J1650; J2185; J3370

== ENCOUNTER 2021-03-25 21:38 | Emergency (ER) | payer OTHER, SELFPAY ==
--- NOTE | ~2021-03-25 | XR_ITS ---
EXAMINATION: XR FOOT, RIGHT CLINICAL INFORMATION: Pain and swelling COMPARISON: None TECHNIQUE: AP, lateral, and oblique views of the right foot. FINDINGS: No acute fracture or dislocation. Alignment is anatomic. Joint spaces are maintained. Tiny marginal osteophyte along the first metatarsophalangeal joint. Soft tissues unremarkable. XR/XR foot RT 2V IMPRESSION: No etiology for the patient's pain is identified.
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
[2021-03-25 22:30] LABS: Basophils Percent Auto 0.3 % (0-2); Eosinophils Absolute Auto 0.1 X10*3/uL (0.0-0.4); Eosinophils Percent Auto 0.6 % (0-4); Hematocrit 39.4 % (37-47); Hemoglobin 12.9 g/dl (12.0-16.0); Imm Gran Abs Auto 0.13 X10*3/uL (0.00-0.03); Imm Gran Pct Auto 1.4 % (0.0-0.4); Lymphocytes Absolute Auto 2.4 X10*3/uL (1.2-4.9); Lymphocytes Percent Auto 25.6 % (20-40); MANUAL DIFF FLAG NO; Mean Corpuscular HGB Conc 32.7 g/dl (31.0-35.0); Mean Corpuscular Volume 85.5 fL (80-98); Monocytes Absolute Auto 0.9 X10*3/uL (0.1-1.2); Monocytes Percent Auto 9.5 % (2-11); Neutrophils Absolute Auto 5.8 X10*3/uL (2.0-8.3); Neutrophils Percent Auto 62.6 % (45-73); Platelet Count 347 X10*3/uL (160-400); Red Blood Count 4.61 X10*6/uL (4.20-5.50); Red Cell Distribution Width 16.9 % (11.0-16.0); White Blood Count 9.3 X10*3/uL (4.8-10.8)
[2021-03-25 22:38] VITALS: BMI 19.5
[2021-03-25 22:40] LABS: Acetone, serum QL Negative (Negative)
[2021-03-25 22:41] LABS: Ethanol < 10 mg/dL
[2021-03-25 22:45] LABS: Lactic Acid 3.6 mmol/L (0.5-2.0)
[2021-03-25 22:46] LABS: Alanine Aminotransferase 611 U/L (0-31); Albumin Level 3.6 g/dL (3.5-5.0); Alkaline Phosphatase 267 U/L (39-117); Anion Gap 13 (12-20); Aspartate Amino Transferase 521 U/L (5-31); Bilirubin Total 0.9 mg/dL (0.0-1.0); Blood Urea Nitrogen 11 mg/dL (9-16); Calcium 9.2 mg/dL (8.4-10.2); Carbon Dioxide 29 mmol/L (22-29); Chloride 99 mmol/L (96-108); Creatinine Clr Calc Pharmacy 61.5; Estimated Glomerular Filt Rate > 60; Glucose Random 104 mg/dL (60-115); Lipase 30 U/L (8-78); Magnesium 2.1 mg/dL (1.6-2.6); Potassium 3.8 mmol/L (3.3-5.1); Sodium 137 mmol/L (135-145); Total Protein 7.6 g/dL (6.5-8.0)
[2021-03-25 22:52] LABS: HCG Quantitative < 2 mIU/mL
--- NOTE | 2021-03-25 23:23 | PC.NURSE ---
patient refused ekg ,rn aware .
[2021-03-25 23:29] VITALS: BP 112/62; PULSE 77; RESP 16; TEMP 36.5; O2SAT 100
[2021-03-25] MEDS: SODIUM CHLORIDE 1365 ML IV (23:33)
[2021-03-25 23:37] LABS: Glucose, Whole Blood 198 mg/dL (60-115)
[2021-03-26 00:26] LABS: Reflex Lactate? Lactic Acid Added
[2021-03-26 01:02] LABS: Appearance Urine CLEAR; Color Urine YELLOW; Glucose Urine UA >=1000 MG/DL (NEG); Leukocyte Esterase Urine 2+ (NEG); Nitrite Urine NEG (NEG); PH 6.5 (5.0-8.0); UACC Culture Trigger YES; Urine Blood NEG (NEG); Urine Ketones NEG (NEG); Urine Protein NEG (NEG-TRACE)
[2021-03-26 01:11] LABS: Mucus Urine TRACE /LPF; RBC Urine 0 /HPF (0); Squamous Epithelial Cell Urine 2+ /LPF; WBC Urine 0-2 /HPF (0-4)
[2021-03-26 01:21] LABS: Amphetamine Screen Urine Not Detected (Not Detect); Barbiturates, Urine Not Detected (Not Detect); Benzodiazepines Screen Urine Not Detected (Not Detect); Cannabinoid Screen Urine Not Detected (Not Detect); Cocaine Screen Urine POSITIVE (Not Detect); Fentanyl, urine POSITIVE (Not Detect); Opiate Screen Urine POSITIVE (Not Detect); Phencyclidine Screen Urine Not Detected (Not Detect)
[2021-03-26 03:37] VITALS: BP 115/75; PULSE 68; RESP 16; O2SAT 100
[2021-03-26 03:42] LABS: Glucose, Whole Blood 283 mg/dL (60-115)
[2021-03-26 06:16] VITALS: BP 113/70; PULSE 72; RESP 16; O2SAT 100
[2021-03-26 08:44] LABS: Glucose, Whole Blood 280 mg/dL (60-115)
[2021-03-26] MEDS: Insulin Lispro 100 UNIT/ML 3 ML VIAL 8 UNIT SUBCUT (09:54)
--- NOTE | 2021-03-26 12:21 | MHC.CARE ---
Pt provided with Recovery resources to contact after discharge.
[2021-03-26 12:34] LABS: Glucose, Whole Blood 135 mg/dL (60-115)
[2021-03-26 12:55] VITALS: BP 108/70; PULSE 84; RESP 14; TEMP 36.9; O2SAT 99
--- NOTE | 2021-03-26 15:27 | MHC.CM.ED ---
Received case management consult overnight. Patient came to ER due to hyperglycemia. Patient denies having a PCP. Patient is currently staying at the [address] [place] [address] in [place]. Patient denies having a telephone. Patient is active with [facility]. Sadaf of [facility] notified and asked to reach out to patient's primary care nurse practitioner. Tiffany TRAVIS will send RX for insuling and glucometer to [facility] on [facility] ordered for patient. Continue to monitor for d/c needs.
== END 2021-03-26 15:12 | disposition home or self-care (01) ==
PROVIDERS: Physician Assistant Medical; Emergency Provider Emergency Medicine
DX: E10.649 Type 1 diabetes mellitus with hypoglycemia without coma (principal); R41.82 Altered mental status, unspecified; F14.90 Cocaine use, unspecified, uncomplicated; F17.210 Nicotine dependence, cigarettes, uncomplicated; Z71.6 Tobacco abuse counseling; Z79.899 Other long term (current) drug therapy; Z79.4 Long term (current) use of insulin
CPT/HCPCS: 36415; 73620; 80053; 80307; 81001; 82009; 82077; 82550; 82947; 83605; 83690; 83735; 84702; 85025; 87040; 87086; 96361; 96374; 96375; 99284; 99291

== ENCOUNTER 2021-05-26 17:36 | Emergency (ER) | payer OTHER, SELFPAY ==
[2021-05-26] VITALS (7 sets, daily range): BP systolic 70–140; BP diastolic 49–78; PULSE 84–104; RESP 10–16; TEMP 36.6–36.8; O2SAT 97–99; BMI 17.9
--- NOTE | ~2021-05-26 | XR_ITS ---
EXAMINATION: XR CHEST CLINICAL INFORMATION: Overdose COMPARISON: 10/06/2020 TECHNIQUE: Frontal view of the chest was obtained. FINDINGS: Exam shows some patchy opacifications in the left upper lung which may well be consistent with area of infiltrate. Question retrocardiac density which may represent an early infiltrate. There is no failure or effusion. The cardiac silhouette is similar to previous.. XR/XR chest 1V IMPRESSION: Findings suggest left upper lobe infiltrate and possible retrocardiac infiltrate
--- NOTE | 2021-05-26 18:26 | PC.NURSE ---
pt continues to refuse narcan, sts im allergic . not present on pt allergies. dr arevalo at bedside to evaluate pt.
--- NOTE | 2021-05-26 19:55 | HO.SUDE ---
CARE Team met with pt to offer SUDE and pt declined whispering, I just want to get the fuck out of here. Pt denies having access to narcan so pt will be sent home with narcan. CARE Team will order a Lyft for pt when pt is more awake.
--- NOTE | 2021-05-26 19:57 | MHC.RECOVSUP ---
? 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 ? ?Current location: ?ED[facility] o ? ? ?Identified substance use concern: Phenyl ? - Overdose - Withdrawal - Support ? ?Intervention: o Community resources provided o Harm reduction discussion ? Additional information: I was able to connect with Pt. and suggest detox and further treatment. Pt was not interested in further treatment and wanted to leave. I offered Pt community resources and mentoring. I reviewed harm reduction strategies and consulted with the Care Team about sending her home with narcritu. Doctor prescribed narcan and a Lift was provided back to her hotel room in [place]. ?
--- NOTE | 2021-05-26 20:06 | PC.NURSE ---
pt a&o, denies sob or chest pain. pt is refusing labs, and any additional medical work up. pt requesting to go home provider in to discuss plan of care.
--- NOTE | 2021-05-26 20:08 | PC.NURSE ---
Care team in to discuss plan of care and resoures.
--- NOTE | 2021-05-26 20:27 | PC.NURSE ---
Second attempt to see if patient want labs drawn and Iv placed. pt still refusing . Provider is aware. Will continue to monitor.
--- NOTE | 2021-05-26 20:45 | PC.NURSE ---
Thrid attempt to draw blood and pt refusing. pt refusing po medication. Provider aware.
--- NOTE | 2021-05-26 20:47 | PC.NURSE ---
pt requesting insulin, poc completed and provider made aware of results.
--- NOTE | 2021-05-26 20:56 | PC.NURSE ---
pt willing to take po mediation if blood sugar was tested. poc was 367. provider is carrion. Will continue to monitor.
[2021-05-26 20:57] LABS: Glucose, Whole Blood 367 mg/dL (60-115)
[2021-05-26] MEDS: levoFLOXacin 750 MG TABLET PO (21:14)
[2021-05-26] MEDS: Insulin Glargine,Hum.rec.anlog 100 UNIT/ML 10 ML VIAL 10 UNIT SUBCUT (21:15)
[2021-05-26 21:51] LABS: Glucose, Whole Blood 379 mg/dL (60-115)
[2021-05-26] MEDS: Insulin Lispro 100 UNIT/ML 3 ML VIAL SUBCUT (22:32)
--- NOTE | 2021-05-26 22:34 | PC.NURSE ---
pt a&o, no sob or chest pain. pt able to follow commands, being discharge home. Lift called for ride home.
--- NOTE | 2021-05-26 22:39 | ED.OVERDOSE ---
HPI - Overdose General Chief Complaint: Overdose Stated Complaint: HEROIN USE, NO NARCAN GIVEN Time Seen by Provider: 05/26/21 19:19 Source: patient and EMS Mode of arrival: EMS Limitations: no limitations History of Present Illness HPI Narrative: 40-year-old female came in by ambulance after was found by bystander unresponsive. Patient is known IV drug abuser admitted to using heroin today, patient was found by a bystander unresponsive in street but easily arousable, no Narcan was given by EMS, patient was transported to the hospital initial vital sign showed hypotension and patient is semi responsive, able to answer question, patient is resisting taking Narcan, patient adamantly refusing blood workup to rule out sepsis, the only thing patient will agree on is to check her blood sugar because she has known diabetic, blood sugar was high patient was given insulin, facial still refusing any blood workup in hospital only agreed on chest x-ray which showed left pneumonia. Patient is refusing to take the antibiotic for pneumonia, now patient agreed to take the antibiotic. Related Data Home Medications Medication Instructions Recorded Confirmed insulin pump controller 01/10/21 01/27/21 insulin aspart U-100 100 unit/mL See Protocol SUBCUT TIDAC 03/26/21 03/26/21 (3 mL) subcutaneous pen (Novolog Flexpen U-100 Insulin aspart) Previous Rx's Medication Instructions Recorded blood-glucose meter (FreeStyle #1 ea 01/28/21 Lite Meter) pen needle, diabetic 31 gauge x #100 ea 01/28/2106/14 (Pen Needle) blood sugar diagnostic (FreeStyle #100 ea 03/26/21 Lite Strips) blood sugar diagnostic (Freestyle #50 ea 03/26/21 [employer]) blood-glucose meter (FreeStyle #1 ea 03/26/21 System Kit) insulin detemir U-100 100 unit/mL 10 unit (0.1 mL) SUBCUT BID #10 ml 03/26/21 subcutaneous solution (Levemir U-100 Insulin) azithromycin 250 mg tablet See Rx Instructions .ROUTE 05/26/21 (Zithromax Z-Tavon) .COMPLEX #6 tab Allergies Allergy/AdvReac Type Severity Reaction Status Date / Time ibuprofen Allergy Anaphylaxis Verified 01/10/21 18:54 Penicillins Allergy Anaphylaxis Verified 01/27/21 15:56 Review of Systems Review of Systems: all other systems are reviewed and are negative Constitutional: Reports as per HPI and Reports no additional constitutional complaints Eyes: Reports as per HPI and Reports no additional eye complaints Reports system reviewed and no additional complaints, except as documented Cardiovascular: Reports as per HPI and Reports no additional cardiovascular complaints Respiratory: Reports as per HPI and Reports no additional respiratory complaints Gastrointestinal: Reports as per HPI and Reports no additional gastrointestinal complaints Genitourinary: Reports no additional female genitourinary complaints Musculoskeletal: Reports no additional musculoskeletal complaints Skin/Breast: Reports system reviewed and no additional complaints, except as docu Psychiatric: Reports no additional psychiatric complaints Endocrine: Reports no additional endocrine complaints Hematologic/Lymphatic: Reports no additional hematologic/lymphatic complaints Allergic/Immunologic: Reports no additional allergic/immunologic complaints Reports system reviewed and no additional complaints, except as documented and Reports Abnormal speech present [facility] Past Medical History Medical History Abscess of foot IV drug abuse Type 1 diabetes Surgical History H/O: hysterectomy Social History Social History Household Members: Unknown / Unable to assess Housing: Unknown / Unable to assess Unable to assess alcohol history related to: Unable to respond Alcohol intake: never Patient Tobacco Use Status: Current someday Tobacco user Tobacco use type: Cigarette Second Hand Smoke Exposure: No Use of substances other than those prescribed or required for medical reasons: Yes Substance Use Type: Heroin Advance Directives: No Advance Directives Information Provided: No Patient : No service: No Current occupational status: disabled Physical Exam Vital Signs: Vital Signs: Last Vital Signs Temp 98.3 F 05/26/21 20:46 Pulse 84 05/26/21 20:46 Resp 16 05/26/21 20:46 BP 104/78 05/26/21 20:46 Pulse Ox 97 05/26/21 20:46 BMI result Body Mass Index 17.9 vital signs have been reviewed as appeared to be correct. Blood pressure normal. Heart rate normal. Respiration rate normal. Temperature normal. Oxygen saturation normal. Appearance: Alert. Oriented X3. No acute distress. Head: Normal external exam. Normocephalic. Atraumatic. No Mao signs noted. No raccoon eyes noted Eyes: PERRLA. EOMI. Conjunctiva and sclera normal. Eyelids normal. ENT: TM's Normal. Pharynx normal. Uvula midline. Moist mucous membranes. No trismus noted. No drooling noted. No muffled voice noted. Neck: Normal inspection. Neck supple. FROM. No adenopathy. Thyroid Normal. No meningeal signs. No neck mass noted. CVS: Normal heart rate and rhythm. Heart sound normal. No murmurs noted. Pulses normal throughout. Respiratory: No respiratory distress. Painless inspiration. Breath sounds normal. No wheezes/rales/rhonchi noted. Chest nontender. No accessory muscle usage noted or decreased air movement noted. Abdomen: Soft and nontender. Bowel sounds normal in all 4 quadrants. No distention noted. No organomegaly noted. No visible injury noted. Back: No CVA tenderness. Full range of motion noted. Skin: Skin warm and dry. Normal skin color. Normal skin turgor. No rashes/lesions/lacerations noted. Extremities: No lower extremity edema. Extremities exhibit normal range of motion. Extremities nontender. Neuro: Oriented X 3. Cranial nerve exam: II-XII are grossly intact No motor deficit. No sensory deficit. Reflexes normal. Course Course Course Narrative: assessment and plan 40-year-old female IV drug Abuser came in after used heroin, patient is adamantly refusing any workup in the emergency department, x-ray revealed left lung pneumonia will start the patient on Z-Tavon, patient will be signed out against medical advise. Blood sugar is high patient was given subcu short acting insulin. MDM - Overdose Medical Records Attestation: I reviewed the patient's medical records. Lab Data Attestation: I reviewed the patient's lab results. Labs: Lab Results 05/26/21 05/26/21 Range/Units 20:54 21:48 POC Glucose 367 H* 379 H* (60-115) mg/dL Imaging Data Chest x-ray: Attestation: I personally reviewed and interpreted this imaging study as follows: Radiologist's impression: Findings suggest left upper lobe infiltrate and possible retrocardiac infiltrate ? Discharge Plan Discharge Clinical Impression: Hyperglycemia due to diabetes mellitus, Drug abuse Patient Disposition: Left Against Medical Advice Instructions: Diabetic Hyperglycemia (ED) Prescriptions: New azithromycin [Zithromax Z-Tavon] 250 mg tablet See Rx Instructions .ROUTE .COMPLEX Qty: 6 RF: 0 No Action (DME) pen needle, diabetic [Pen Needle] 31 gauge x 1/4 needle See Rx Instructions .Route Qty: 100 RF: 0 (DME) blood-glucose meter [FreeStyle Lite Meter] Kit See Rx Instructions .Route Qty: 1 RF: 0 (DME) insulin pump controller Misc MISCELLANEOUS RF: 0 insulin aspart U-100 [Novolog Flexpen U-100 Insulin] 100 unit/mL (3 mL) insulin pen See Protocol sliding scale dose subcut TIDAC RF: 0 Levemir U-100 Insulin 100 unit/mL solution 10 unit subcut BID Qty: 10 RF: 3 (DME) blood-glucose meter [FreeStyle System Kit] Kit See Rx Instructions .Route Qty: 1 RF: 0 (DME) Freestyle [employer] Strip See Rx Instructions .Route Qty: 50 RF: 1 (DME) FreeStyle Lite Strips Strip See Rx Instructions .Route Qty: 100 RF: 0 Referrals: Physician,Unknown J [Primary Care Provider] - 2 days
--- NOTE | 2021-05-26 22:48 | PC.NURSE ---
pt leaving against medical advice.
[2021-05-26] MEDS: Naloxone HCl Nasal TAKE HOME 4 MG SPRAY NOSTRILALT (22:50)
== END 2021-05-26 22:51 | disposition left against medical advice (07) ==
PROVIDERS: Emergency Provider Emergency Medicine
DX: F11.10 Opioid abuse, uncomplicated (principal); E10.65 Type 1 diabetes mellitus with hyperglycemia; Z96.41 Presence of insulin pump (external) (internal); Z79.4 Long term (current) use of insulin; F17.200 Nicotine dependence, unspecified, uncomplicated
CPT/HCPCS: 71045; 82947; 99285